=== PATIENT | female | born 1980 | race Caucasian/White ===

== ENCOUNTER 2017-02-05 10:53 | Emergency (ER) | payer MEDICAID ==
[2017-02-05] MEDS ORDERED: Sodium Chloride 0.9% 10 ML Syringe FLUSH PRN (11:47)
[2017-02-05] MEDS ORDERED: LORazepam 2 MG/ML MDV IVPUSH ONE (11:48)
--- NOTE | 2017-02-05 11:51 | EDM.PDOC ---
ED HPI GI/ABDOMINAL - General Chief Complaint: Gastrointestinal Problem Stated Complaint: VOMITING Time Seen by Provider: 02/05/17 11:43 Source: Reports: Patient, Family, Old records, RN notes reviewed History Limitations: Reports: No limitations - History of Present Illness INITIAL COMMENTS - FREE TEXT/NARRATIVE: 36-year-old female presents emergency department for a complaint of nausea and vomiting, she has no history of cyclical vomiting syndrome she has this problem every couple of months where she gets into trouble he cannot break the cycle of nausea and vomiting. This episode has been going on for about 12 hours, started menstruation today - Related Data Allergies/ADRs: Allergies Allergy/AdvReac Type Severity Reaction Status Date / Time codeine Allergy Intermediate Hives Verified 05/26/16 19:27 Home Meds: Home Meds Ibuprofen 200 mg PO Q4H PRN 05/26/16 [History] Ondansetron [Zofran ODT] 4 mg PO Q6HR PRN 02/05/17 [History] Past Medical History HEENT History: Reports: Otitis media Other Gastrointestinal History: every few months gets severe nausea and vomiting episodes. 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/BYN History: Bartholin cysts Musculoskeletal History: Reports: Neck pain, chronic Psychiatric History: Reports: ADHD Immunologic History: Reports: Immunosuppression Dermatologic History: Reports: Eczema, Other (see below) Other Dermatologic History: bartholon cysts on viry area - Infectious Disease History Infectious Disease History: Reports: Chicken pox - Past Surgical History HEENT Surgical History: Reports: Adenoidectomy, Tonsillectomy Female Surgical History: Reports: section, Tubal ligation Social & Family History - Tobacco Use Smoking Status *Q: Current Every Day Smoker Years of Tobacco use: 20 Packs/Tins Daily: 0.5 Used Tobacco, but Quit: No Second Hand Smoke Exposure: No - Caffeine Use Caffeine Use: Reports: Tea - Alcohol Use Days Per Week of Alcohol Use: 1 Number of Drinks Per Day: 1 Total Drinks Per Week: 1 - Recreational Drug Use Recreational Drug Use: No ED ROS GENERAL - Review of Systems Review Of Systems: See Below Constitutional: Denies: fever, chills HEENT: Reports: No symptoms Respiratory: Reports: no symptoms Cardiovascular: Reports: No symptoms GI/Abdominal: Reports: Abdominal pain, Nausea, Vomiting : Reports: no symptoms Musculoskeletal: Reports: no symptoms Skin: Reports: no symptoms Neurological: Reports: no symptoms ED EXAM, GI/ABD - Physical Exam Exam: See Below Text/Narrative:: General: Female, moderate discomfort secondary to nausea and vomiting, alert and oriented x3 HEENT: head is atraumatic normocephalic, eyes pupils equal round reactive to light and accommodation sclera clear no conjunctivitis appreciated. Ears tympanic membranes clear and terry landmarks and light reflex are present bilaterally canals are clear. Nose no septal deviation, nares are clear, no blood present. Mouth mucosa is dry and pink no erythema or exudate noted in soft palate, tongue is midline uvula is midline, dentition is intact. Neck: Supple no thyromegaly no tracheal deviation. Nodes: Cervical nodes subclavicular nodes nontender no palpable lymphadenopathy noted. Lungs: clear to auscultation bilaterally with symmetrical respirations, no adventitious noise appreciated. CV: Regular rate and rhythm S1 and S2 appreciated no murmurs rubs or gallops noted. Abdomen: Soft, generalized tenderness to palpation, no palpable masses or organomegaly appreciated, no distention no guarding bowel sounds are present, Neuro: Cranial nerves II through XII grossly intact Skin: Warm and dry, intact Extremities: No lower extremity edema appreciated, . Course - Vital Signs Last Recorded V/S: Last Vital Signs Temp 96.1 F 02/05/17 11:14 Pulse 47 L 02/05/17 14:58 Resp 14 02/05/17 14:58 BP 106/30 L 02/05/17 14:58 Pulse Ox 100 02/05/17 14:58 - Orders/Labs/Meds Orders: Active Orders 24 hr Category Date Time Status Peripheral IV Care [RC] . DIRECTED Care 02/05/17 11:47 Active Sodium Chloride 0.9% [Normal Saline] 1,000 ml Med 02/05/17 12:00 Active IV ASDIRECTED Sodium Chloride 0.9% [Normal Saline] 1,000 ml Med 02/05/17 13:00 Active IV ASDIRECTED Sodium Chloride 0.9% [Saline Flush] Med 02/05/17 11:47 Active 10 ml FLUSH ASDIRECTED PRN Peripheral IV Insertion Adult [OM.PC] Urgent Oth 02/05/17 11:47 Ordered Medication Orders Sodium Chloride (Normal Saline) 1,000 mls @ 999 mls/hr IV ASDIRECTED LAUREN Last Admin: 02/05/17 11:59 Dose: 999 mls/hr Sodium Chloride (Normal Saline) 1,000 mls @ 999 mls/hr IV ASDIRECTED LAUREN Last Admin: 02/05/17 13:07 Dose: 999 mls/hr Sodium Chloride (Saline Flush) 10 ml FLUSH ASDIRECTED PRN PRN Reason: Keep Vein Open Last Admin: 02/05/17 12:00 Dose: 10 ml Labs: Laboratory Tests 02/05/17 02/05/17 02/05/17 Range/Units 11:58 11:58 11:58 WBC 13.5 H (4.5-11.0) K/uL RBC 4.86 (3.30-5.50) M/uL Hgb 15.6 H (12.0-15.0) g/dL Hct 44.0 (36.0-48.0) % MCV 91 (80-98) fL MCH 32 H (27-31) pg MCHC 36 (32-36) % Plt Count 301 (150-400) K/uL Neut % (Auto) 84 H (36-66) % Lymph % (Auto) 9 L (24-44) % Meagher % (Auto) 6 (2-6) % Eos % (Auto) 0 L (2-4) % Baso % (Auto) 1 (0-1) % Sodium 141 (140-148) mmol/L Potassium 3.8 (3.6-5.2) mmol/L Chloride 104 (100-108) mmol/L Carbon Dioxide 25 (21-32) mmol/L Anion Gap 12.1 (5.0-14.0) mmol/L BUN 22 H (7-18) mg/dL Creatinine 1.0 (0.6-1.0) mg/dL Est Cr Clr Drug Dosing 56.40 mL/min Estimated GFR (MDRD) > 60 (>60) Glucose 160 H (74-106) mg/dL Lactic Acid 2.4 H (0.4-2.0) mmol/L Calcium 9.5 (8.5-10.1) mg/dL Total Bilirubin 0.6 D (0.2-1.0) mg/dL AST 19 (15-37) U/L ALT 24 (12-78) U/L Alkaline Phosphatase 40 L (46-116) U/L Total Protein 7.9 (6.4-8.2) g/dL Albumin 4.5 (3.4-5.0) g/dL Globulin 3.4 (2.3-3.5) g/dL Albumin/Globulin Ratio 1.3 (1.2-2.2) Lipase 75 (73-393) U/L Urine Color Urine Appearance Urine pH (4.5-8.0) Ur Specific [place] (1.008-1.030) Urine Protein (NEGATIVE) mg/dL Urine Glucose (UA) (NEGATIVE) mg/dL Urine Ketones (NEGATIVE) mg/dL Urine Occult Blood (NEGATIVE) Urine Nitrite (NEGATIVE) Urine Bilirubin (NEGATIVE) Urine Urobilinogen (NORMAL) mg/dL Ur Leukocyte Esterase (NEGATIVE) Urine RBC (0-5) Urine WBC (0-5) Ur Epithelial Cells Amorphous Sediment Urine Bacteria Urine Mucus Urine HCG, Qual 02/05/17 02/05/17 Range/Units 13:52 13:52 WBC (4.5-11.0) K/uL RBC (3.30-5.50) M/uL Hgb (12.0-15.0) g/dL Hct (36.0-48.0) % MCV (80-98) fL MCH (27-31) pg MCHC (32-36) % Plt Count (150-400) K/uL Neut % (Auto) (36-66) % Lymph % (Auto) (24-44) % Meagher % (Auto) (2-6) % Eos % (Auto) (2-4) % Baso % (Auto) (0-1) % Sodium (140-148) mmol/L Potassium (3.6-5.2) mmol/L Chloride (100-108) mmol/L Carbon Dioxide (21-32) mmol/L Anion Gap (5.0-14.0) mmol/L BUN (7-18) mg/dL Creatinine (0.6-1.0) mg/dL Est Cr Clr Drug Dosing mL/min Estimated GFR (MDRD) (>60) Glucose (74-106) mg/dL Lactic Acid (0.4-2.0) mmol/L Calcium (8.5-10.1) mg/dL Total Bilirubin (0.2-1.0) mg/dL AST (15-37) U/L ALT (12-78) U/L Alkaline Phosphatase (46-116) U/L Total Protein (6.4-8.2) g/dL Albumin (3.4-5.0) g/dL Globulin (2.3-3.5) g/dL Albumin/Globulin Ratio (1.2-2.2) Lipase (73-393) U/L Urine Color Red Urine Appearance Turbid Urine pH 6.5 (4.5-8.0) Ur Specific [place] 1.020 (1.008-1.030) Urine Protein 30 H (NEGATIVE) mg/dL Urine Glucose (UA) Normal (NEGATIVE) mg/dL Urine Ketones 50 H (NEGATIVE) mg/dL Urine Occult Blood Large (NEGATIVE) Urine Nitrite Negative (NEGATIVE) Urine Bilirubin Negative (NEGATIVE) Urine Urobilinogen Normal (NORMAL) mg/dL Ur Leukocyte Esterase Small (NEGATIVE) Urine RBC >100 H (0-5) Urine WBC 0-5 (0-5) Ur Epithelial Cells Few Amorphous Sediment Not seen Urine Bacteria Few Urine Mucus Rare Urine HCG, Qual Negative Meds: Medications Generic Name Dose Route Start Last Admin Trade Name Freq PRN Reason Stop Dose Admin Sodium Chloride 1,000 mls @ 999 mls/hr 02/05/17 12:00 02/05/17 11:59 Normal Saline IV 999 mls/hr ASDIRECTED LAUREN Administration Sodium Chloride 1,000 mls @ 999 mls/hr 02/05/17 13:00 02/05/17 13:07 Normal Saline IV 999 mls/hr ASDIRECTED LAUREN Administration Sodium Chloride 10 ml 02/05/17 11:47 02/05/17 12:00 Saline Flush FLUSH 10 ml ASDIRECTED PRN Administration Keep Vein Open Discontinued Medications Generic Name Dose Route Start Last Admin Trade Name Freq PRN Reason Stop Dose Admin Lorazepam 1 mg 02/05/17 11:48 02/05/17 12:00 Ativan IVPUSH 02/05/17 11:49 1 mg ONETIME ONE Administration Prochlorperazine Edisylate 5 mg 02/05/17 14:20 02/05/17 14:30 Compazine IVPUSH 02/05/17 14:21 5 mg ONETIME ONE Administration Departure - Departure Time of Disposition: 15:33 Disposition: Home, Self-Care 01 Condition: good Clinical Impression: Cyclical vomiting syndrome Qualifiers: Vomiting Intractability: non-intractable Nausea presence: with nausea Qualified Code(s): G43.A0 - Cyclical vomiting, not intractable Forms: ED Department Discharge Additional Instructions: used Zofran or Ativan as needed for nausea and vomiting symptoms, Please followup with your primary care provider in 3-5 days if not better, please call return to the emergency department with worsening of symptoms. - My Orders Last 24 Hours: My Active Orders 02/05/17 11:47 Peripheral IV Care [RC] . DIRECTED Sodium Chloride 0.9% [Saline Flush] 10 ml FLUSH ASDIRECTED PRN Peripheral IV Insertion Adult [OM.PC] Urgent 02/05/17 12:00 Sodium Chloride 0.9% [Normal Saline] 1,000 ml IV ASDIRECTED 02/05/17 13:00 Sodium Chloride 0.9% [Normal Saline] 1,000 ml IV ASDIRECTED - Assessment/Plan Last 24 Hours: My Active Orders 02/05/17 11:47 Peripheral IV Care [RC] . DIRECTED Sodium Chloride 0.9% [Saline Flush] 10 ml FLUSH ASDIRECTED PRN Peripheral IV Insertion Adult [OM.PC] Urgent 02/05/17 12:00 Sodium Chloride 0.9% [Normal Saline] 1,000 ml IV ASDIRECTED 02/05/17 13:00 Sodium Chloride 0.9% [Normal Saline] 1,000 ml IV ASDIRECTED Plan: Assessment Acuity = acute on chronic Site and laterality = cyclic vomiting syndrome Etiology = unclear etiology Manifestations = none Location of injury = home Lab values =CBC elevated at 13.5 consistent leukocytosis, lactic acid elevated at 2.4 consistent lactic acidosis, urinalysis reveals greater than 100 RBCs probably related to new onset of menstruation rather than hematuria Plan she had significant improvement combination of Ativan and 2 L of fluids plan is to discharge home with Ativan and Zofran to be used as needed followup with primary care in 3-5 days if no improvement Patient was in agreement with the plan all questions were answered, they were instructed to return to the emergency department or call for worsening symptoms. This note was dictated using [employer] voice recognition software please call with any questions.
[2017-02-05] MEDS ORDERED: Sodium Chloride 0.9% 1,000 ML IV SCH ×2 (12:00→13:00)
[2017-02-05] MEDS ORDERED: Prochlorperazine 10 MG/2 ML SDV IVPUSH ONE (14:20)
[2017-02-05 14:58] VITALS: BP 106/30
== END 2017-02-05 15:45 | disposition home or self-care (01) ==
LOC: JP.ED 10:53
DX: G43.A0 Cyclical vomiting, in migraine, not intractable (principal); F17.210 Nicotine dependence, cigarettes, uncomplicated; Z88.5 Allergy status to narcotic agent; Z79.899 Other long term (current) drug therapy; Z98.890 Other specified postprocedural states
CPT/HCPCS: 36415; 80053; 81001; 81025; 83605; 83690; 85025; 96361; 96374; 96375; 99284; J0780; J2060; J7040; J7050

== ENCOUNTER 2017-09-16 12:14 | Emergency (ER) | payer MEDICAID ==
[2017-09-16 12:29] VITALS: BP 153/78
[2017-09-16] MEDS ORDERED: Acetaminophen/HYDROcodone 325-5 MG Tab PO ONE (12:34)
[2017-09-16] MEDS ORDERED: Bupivacaine 0.5%/EPINEPHrine 1:200,000 1.8 ML Cartridge INJECT ONE ×2 (12:34→13:02)
--- NOTE | 2017-09-16 12:38 | EDM.PDOC ---
ED HPI GENERAL MEDICAL PROBLEM - General Chief Complaint: ENT Problem Stated Complaint: TOOTH PAIN INTO NECK AND ARM Time Seen by Provider: 09/16/17 12:25 Source of Information: Reports: Patient History Limitations: Reports: No Limitations - History of Present Illness INITIAL COMMENTS - FREE TEXT/NARRATIVE: Christin is a 37-year-old female who presents to the emergency department stay with left lower dental pain. Patient reports that her pain started last night. Patient reports the pain radiates to her ear, down her neck and down her left arm. Patient reports that her strength in her left arm is diminished since yesterday. Patient also endorses a history of cervical spine issues with cervical radiculopathy in the past. Patient denies any fever or chills, nausea or vomiting. Patient has not been to the dentist" A while". She has been taking Aleve with minimal improvement in her symptoms. Duration: Day(s): (2) - Related Data Allergies Allergy/AdvReac Type Severity Reaction Status Date / Time codeine Allergy Intermediate Hives Verified 05/26/16 19:27 Home Meds: Home Meds Ibuprofen 200 mg PO Q4H PRN 05/26/16 [History] Ondansetron [Zofran ODT] 4 mg PO Q6HR PRN 02/05/17 [History] LORazepam [LORazepam] 1 tab PO TID PRN 09/16/17 [History] Past Medical History HEENT History: Reports: Otitis Media Other Gastrointestinal History: every few months gets severe nausea and vomiting episodes. 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: Bartholin cysts Musculoskeletal History: Reports: Neck Pain, Chronic Psychiatric History: Reports: ADHD Immunologic History: Reports: Immunosuppression Dermatologic History: Reports: Eczema, Other (See Below) Other Dermatologic History: bartholon cysts on viry area - Infectious Disease History Infectious Disease History: Reports: Chicken Pox - Past Surgical History Female Surgical History: Reports: Section, Tubal Ligation Social & Family History - Tobacco Use Smoking Status *Q: Current Every Day Smoker Years of Tobacco use: 15 Packs/Tins Daily: 0.5 Used Tobacco, but Quit: No Second Hand Smoke Exposure: No - Caffeine Use Caffeine Use: Reports: Tea - Alcohol Use Days Per Week of Alcohol Use: 1 Number of Drinks Per Day: 1 Total Drinks Per Week: 1 - Recreational Drug Use Recreational Drug Use: No ED ROS ENT - Review of Systems Review Of Systems: ROS reveals no pertinent complaints other than HPI. ED EXAM, ENT - Physical Exam Exam: See Below Exam Limited By: No Limitations General Appearance: Alert, WD/WN, Anxious Eye Exam: Bilateral Eye: EOMI, PERRL Ears: Normal External Exam, Normal Canal, Normal TMs Head: Atraumatic Neck: Normal Inspection, Supple, Non-Tender, Tender Lateral Respiratory/Chest: No Respiratory Distress, Lungs Clear Cardiovascular: Normal Peripheral Pulses, Regular Rate, Rhythm, No Murmur Extremities: Normal Inspection, Non-Tender, Normal Capillary Refill, Other ( strength is 4/5 on LUE, 5/5 RUE, distal and proximal pulses intact, cap refill intact). No: Pallor, Redness Neurological: Alert, Oriented, Normal Reflexes Psychiatric: Anxious Skin: Warm, Dry, Intact Lymphatic: No Adenopathy Course - Vital Signs Last Recorded V/S: Last Vital Signs Temp 35.9 C 09/16/17 12: Pulse 58 L 09/16/17 12:27 Resp 15 09/16/17 12:27 BP 153/78 H 09/16/17 12:27 Pulse Ox 99 09/16/17 12:27 Christin is a 37 year old female who presents to the ED today with c/o left lower dental pain extending down left lateral neck/shoulder and into left arm. Patient reports that the arm involvement has happened in the past with her dental pain and typically lasts about a day. Patient on exam is well hydrated, she is non toxic appearing, she shows no signs of Neto Angina or trismus, no fluctuant abscess appreciated. I offered patient a dental block which she agreed to. She was injected with 0.25 Marcaine with Epinephrine with good relief, tolerated well, into left inferior alveolar region. I discussed the patient we need to start her on a ten-day course of amoxicillin for her likely dental abscess. I will send her home with Percocet for pain, she has not had frequent opioid narcotics according to the [place] prescription monitoring program. I strongly encouraged patient to continue to take Aleve for the anti-inflammatory component. I anticipate that her arm involvement will improve as the inflammation and infection improved. Reasons to return to the emergency department were discussed in detail, I encouraged patient to get a hold of her dental clinic on Monday to schedule an appointment. She is agreeable to plan of care and was discharged in stable condition with her daughter driving. - Orders/Labs/Meds Meds: Medications Discontinued Medications Generic Name Dose Route Start Last Admin Trade Name Kaveh PRN Reason Stop Dose Admin Hydrocodone Bitart/Acetaminophen 2 tab 09/16/17 12:34 09/16/17 12:40 [place] 325-5 Mg PO 09/16/17 12:35 2 tab ONETIME ONE Administration Bupivacaine HCl/Epinephrine Bitart 1.8 ml 09/16/17 12:34 09/16/17 12:40 Marcaine 0.5%/Epinephrine 1:200,000 INJECT 09/16/17 12:35 1.8 ml ONETIME ONE Administration Ondansetron HCl 4 mg 09/16/17 12:50 Zofran Odt PO 09/16/17 12:51 ONETIME ONE Departure - Departure Time of Disposition: 13:30 Disposition: Home, Self-Care 01 Condition: Good Clinical Impression: Dental abscess - Discharge Information Instructions: Dental Abscess, [id number] Referrals: PCP,None [Primary Care Provider] - Forms: ED Department Discharge Additional Instructions: Christin, Please continue taking the Aleve per bottle recommendations. You can take the Percocet for severe pain, this is a narcotic so do not drive if you take it. Take the amoxicillin as prescribed, take your first dose right away. Make sure you call the dentist on Monday to schedule an appointment. If you develops any concerns or worsening symptoms please return to the emergency department. It was nice meeting you and I hope you feel better soon.
[2017-09-16] MEDS ORDERED: Ondansetron 4 MG Tab.DIS PO ONE (12:50)
== END 2017-09-16 13:45 | disposition home or self-care (01) ==
LOC: JP.ED 12:14
DX: K04.7 Periapical abscess without sinus (principal); F17.210 Nicotine dependence, cigarettes, uncomplicated; Z88.5 Allergy status to narcotic agent
CPT/HCPCS: 64400; 99283; A9270

== ENCOUNTER 2017-12-25 14:01 | Emergency (ER) | payer MEDICAID ==
[2017-12-25] MEDS ORDERED: Sodium Chloride 0.9% 10 ML Syringe FLUSH PRN (14:55)
[2017-12-25] MEDS ORDERED: Ondansetron 4 MG/2 ML SDV IVPUSH ONE (14:56)
[2017-12-25] MEDS ORDERED: LORazepam 2 MG/ML MDV IVPUSH ONE (14:56)
[2017-12-25] MEDS ORDERED: Sodium Chloride 0.9% 1,000 ML IV SCH (15:00)
--- NOTE | 2017-12-25 15:00 | EDM.PDOC ---
ED HPI GENERAL MEDICAL PROBLEM - General Chief Complaint: Gastrointestinal Problem Stated Complaint: VOMITING Time Seen by Provider: 12/25/17 14:50 Source of Information: Reports: Patient, Family, Old Records, RN Notes Reviewed History Limitations: Reports: No Limitations - History of Present Illness INITIAL COMMENTS - FREE TEXT/NARRATIVE: 37-year-old female presents to the emergency department today complaint of nausea and vomiting, she has a history of cyclic vomiting syndrome I had the opportunity to see her for this last year she states this particular event started early this morning she has had emesis 20-30 times unable to keep any oral products down. Denies any fevers does have abdominal pain from retching - Related Data Allergies Allergy/AdvReac Type Severity Reaction Status Date / Time codeine Allergy Intermediate Hives Verified 05/26/16 19:27 Home Meds: Home Meds Ibuprofen 200 mg PO Q4H PRN 05/26/16 [History] Past Medical History HEENT History: Reports: Otitis Media Other Gastrointestinal History: every few months gets severe nausea and vomiting episodes. 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 OB/BYN History: Bartholin cysts Musculoskeletal History: Reports: Neck Pain, Chronic Psychiatric History: Reports: ADHD Immunologic History: Reports: Immunosuppression Dermatologic History: Reports: Eczema, Other (See Below) Other Dermatologic History: bartholon cysts on viry area - Infectious Disease History Infectious Disease History: Reports: Chicken Pox - Past Surgical History Female Surgical History: Reports: Section, Tubal Ligation Social & Family History - Tobacco Use Smoking Status *Q: Heavy Tobacco Smoker Years of Tobacco use: 20 Packs/Tins Daily: 0.5 Used Tobacco, but Quit: No Second Hand Smoke Exposure: No - Caffeine Use Caffeine Use: Reports: Coffee - Alcohol Use Days Per Week of Alcohol Use: 1 Number of Drinks Per Day: 1 Total Drinks Per Week: 1 - Recreational Drug Use Recreational Drug Use: No ED ROS GENERAL - Review of Systems Review Of Systems: See Below Constitutional: Denies: Fever, Chills HEENT: Reports: No Symptoms Respiratory: Reports: No Symptoms Cardiovascular: Reports: No Symptoms GI/Abdominal: Reports: Abdominal Pain, Nausea, Vomiting : Reports: No Symptoms Musculoskeletal: Reports: No Symptoms Skin: Reports: No Symptoms Neurological: Reports: No Symptoms Psychiatric: Reports: Agitation ED EXAM, GI/ABD - Physical Exam Exam: See Below Exam Limited By: No Limitations General Appearance: Alert, WD/WN, Mild Distress Eyes: Bilateral: Normal Appearance Ears: Normal External Exam Nose: Normal Inspection Throat/Mouth: Normal Inspection, Normal Lips, Normal Teeth, Normal Gums, Normal Oropharynx, Normal Voice, No Airway Compromise Head: Atraumatic, Normocephalic Neck: Normal Inspection, Supple, Non-Tender, Full Range of Motion Respiratory/Chest: No Respiratory Distress, Lungs Clear, Normal Breath Sounds, No Accessory Muscle Use Cardiovascular: Regular Rate, Rhythm, No Murmur GI/Abdominal Exam: Soft, No Distention (Generalized), Tender Extremities: Normal Inspection, No Pedal Edema (Ms. Wren she egg in them on [place] her on) Course - Vital Signs Last Recorded V/S: Last Vital Signs Temp 96.6 F 12/25/17 14:24 Pulse 88 12/25/17 17:30 Resp 16 12/25/17 17:30 BP 106/46 L 12/25/17 17:30 Pulse Ox 97 12/25/17 17:30 - Orders/Labs/Meds Orders: Active Orders 24 hr Category Date Time Status Peripheral IV Care [RC] . DIRECTED Care 12/25/17 14:56 Active Sodium Chloride 0.9% [Normal Saline] 1,000 ml Med 12/25/17 15:00 Active IV ASDIRECTED Sodium Chloride 0.9% [Saline Flush] Med 12/25/17 14:55 Active 10 ml FLUSH ASDIRECTED PRN Peripheral IV Insertion Adult [OM.PC] Urgent Oth 12/25/17 14:55 Ordered Medication Orders Sodium Chloride (Normal Saline) 1,000 mls @ 999 mls/hr IV ASDIRECTED LAUREN Last Admin: 12/25/17 15:26 Dose: 999 mls/hr Sodium Chloride (Saline Flush) 10 ml FLUSH ASDIRECTED PRN PRN Reason: Keep Vein Open Last Admin: 12/25/17 15:26 Dose: 10 ml Labs: Laboratory Tests 12/25/17 12/25/17 12/25/17 Range/Units 15:17 15:17 15:17 WBC 18.5 H (4.5-11.0) K/uL RBC 5.06 (3.30-5.50) M/uL Hgb 15.9 H (12.0-15.0) g/dL Hct 44.8 (36.0-48.0) % MCV 89 (80-98) fL MCH 31 (27-31) pg MCHC 36 (32-36) % Plt Count 296 (150-400) K/uL Neut % (Auto) 88 H (36-66) % Lymph % (Auto) 6 L (24-44) % [place] % (Auto) 6 (2-6) % Eos % (Auto) 0 L (2-4) % Baso % (Auto) 0 (0-1) % Sodium 140 (140-148) mmol/L Potassium 3.7 (3.6-5.2) mmol/L Chloride 102 (100-108) mmol/L Carbon Dioxide 21 (21-32) mmol/L Anion Gap 17.3 H (5.0-14.0) mmol/L BUN 25 H (7-18) mg/dL Creatinine 1.0 (0.6-1.0) mg/dL Est Cr Clr Drug Dosing 55.69 mL/min Estimated GFR (MDRD) > 60 (>60) Glucose 145 H (74-106) mg/dL Lactic Acid 3.5 H (0.4-2.0) mmol/L Calcium 10.5 H (8.5-10.1) mg/dL Total Bilirubin 0.6 (0.2-1.0) mg/dL AST 23 (15-37) U/L ALT 29 (12-78) U/L Alkaline Phosphatase 72 D (46-116) U/L Total Protein 8.0 (6.4-8.2) g/dL Albumin 4.6 (3.4-5.0) g/dL Globulin 3.4 (2.3-3.5) g/dL Albumin/Globulin Ratio 1.4 (1.2-2.2) Urine Color Urine Appearance Urine pH (4.5-8.0) Ur Specific Godwin (1.008-1.030) Urine Protein (NEGATIVE) mg/dL Urine Glucose (UA) (NEGATIVE) mg/dL Urine Ketones (NEGATIVE) mg/dL Urine Occult Blood (NEGATIVE) Urine Nitrite (NEGATIVE) Urine Bilirubin (NEGATIVE) Urine Urobilinogen (NORMAL) mg/dL Ur Leukocyte Esterase (NEGATIVE) Urine RBC (0-5) Urine WBC (0-5) Ur Epithelial Cells Amorphous Sediment Urine Bacteria Urine Mucus Urine Opiates Screen (NEGATIVE) Ur Oxycodone Screen (NEGATIVE) Urine Methadone Screen (NEGATIVE) Ur Propoxyphene Screen (NEGATIVE) Ur Barbiturates Screen (NEGATIVE) Ur Tricyclics Screen (NEGATIVE) Ur Phencyclidine Scrn (NEGATIVE) Ur Amphetamine Screen (NEGATIVE) U Methamphetamines Scrn (NEGATIVE) Urine MDMA Screen (NEGATIVE) U Benzodiazepines Scrn (NEGATIVE) U Cocaine Metab Screen (NEGATIVE) U Marijuana (THC) Screen (NEGATIVE) 12/25/17 12/25/17 Range/Units 17:36 17:36 WBC (4.5-11.0) K/uL RBC (3.30-5.50) M/uL Hgb (12.0-15.0) g/dL Hct (36.0-48.0) % MCV (80-98) fL MCH (27-31) pg MCHC (32-36) % Plt Count (150-400) K/uL Neut % (Auto) (36-66) % Lymph % (Auto) (24-44) % [place] % (Auto) (2-6) % Eos % (Auto) (2-4) % Baso % (Auto) (0-1) % Sodium (140-148) mmol/L Potassium (3.6-5.2) mmol/L Chloride (100-108) mmol/L Carbon Dioxide (21-32) mmol/L Anion Gap (5.0-14.0) mmol/L BUN (7-18) mg/dL Creatinine (0.6-1.0) mg/dL Est Cr Clr Drug Dosing mL/min Estimated GFR (MDRD) (>60) Glucose (74-106) mg/dL Lactic Acid (0.4-2.0) mmol/L Calcium (8.5-10.1) mg/dL Total Bilirubin (0.2-1.0) mg/dL AST (15-37) U/L ALT (12-78) U/L Alkaline Phosphatase (46-116) U/L Total Protein (6.4-8.2) g/dL Albumin (3.4-5.0) g/dL Globulin (2.3-3.5) g/dL Albumin/Globulin Ratio (1.2-2.2) Urine Color Yellow Urine Appearance Slightly cloudy Urine pH 8.0 (4.5-8.0) Ur Specific Godwin 1.015 (1.008-1.030) Urine Protein Negative (NEGATIVE) mg/dL Urine Glucose (UA) Normal (NEGATIVE) mg/dL Urine Ketones 50 H (NEGATIVE) mg/dL Urine Occult Blood Negative (NEGATIVE) Urine Nitrite Negative (NEGATIVE) Urine Bilirubin Negative (NEGATIVE) Urine Urobilinogen Normal (NORMAL) mg/dL Ur Leukocyte Esterase Negative (NEGATIVE) Urine RBC 0-5 (0-5) Urine WBC 0-5 (0-5) Ur Epithelial Cells Moderate Amorphous Sediment Not seen Urine Bacteria Few Urine Mucus Many Urine Opiates Screen Negative (NEGATIVE) Ur Oxycodone Screen Negative (NEGATIVE) Urine Methadone Screen Negative (NEGATIVE) Ur Propoxyphene Screen Negative (NEGATIVE) Ur Barbiturates Screen Negative (NEGATIVE) Ur Tricyclics Screen Negative (NEGATIVE) Ur Phencyclidine Scrn Negative (NEGATIVE) Ur Amphetamine Screen Negative (NEGATIVE) U Methamphetamines Scrn Negative (NEGATIVE) Urine MDMA Screen Positive H (NEGATIVE) U Benzodiazepines Scrn Positive H (NEGATIVE) U Cocaine Metab Screen Negative (NEGATIVE) U Marijuana (THC) Screen Positive H (NEGATIVE) Meds: Medications Generic Name Dose Route Start Last Admin Trade Name Freq PRN Reason Stop Dose Admin Sodium Chloride 1,000 mls @ 999 mls/hr 12/25/17 15:00 12/25/17 15:26 Normal Saline IV 999 mls/hr ASDIRECTED LAUREN Administration Sodium Chloride 10 ml 12/25/17 14:55 12/25/17 15:26 Saline Flush FLUSH 10 ml ASDIRECTED PRN Administration Keep Vein Open Discontinued Medications Generic Name Dose Route Start Last Admin Trade Name Freq PRN Reason Stop Dose Admin Lorazepam 1 mg 12/25/17 14:56 12/25/17 15:19 Ativan IVPUSH 12/25/17 14:57 1 mg ONETIME ONE Administration Ondansetron HCl 4 mg 12/25/17 14:56 12/25/17 15:22 Zofran IVPUSH 12/25/17 14:57 4 mg ONETIME ONE Administration Departure - Departure Time of Disposition: 18:01 Disposition: Home, Self-Care 01 Condition: Good Clinical Impression: Cyclical vomiting syndrome Qualifiers: Vomiting Intractability: non-intractable Nausea presence: with nausea Qualified Code(s): G43.A0 - Cyclical vomiting, not intractable - Discharge Information Referrals: PCP,None [Primary Care Provider] - Forms: ED Department Discharge Additional Instructions: Continue with your regular medications, Please followup with your primary care provider in 3-5 days if not better, please call return to the emergency department with worsening of symptoms. - My Orders Last 24 Hours: My Active Orders 12/25/17 14:55 Sodium Chloride 0.9% [Saline Flush] 10 ml FLUSH ASDIRECTED PRN Peripheral IV Insertion Adult [OM.PC] Urgent 12/25/17 14:56 Peripheral IV Care [RC] . DIRECTED 12/25/17 15:00 Sodium Chloride 0.9% [Normal Saline] 1,000 ml IV ASDIRECTED - Assessment/Plan Last 24 Hours: My Active Orders 12/25/17 14:55 Sodium Chloride 0.9% [Saline Flush] 10 ml FLUSH ASDIRECTED PRN Peripheral IV Insertion Adult [OM.PC] Urgent 12/25/17 14:56 Peripheral IV Care [RC] . DIRECTED 12/25/17 15:00 Sodium Chloride 0.9% [Normal Saline] 1,000 ml IV ASDIRECTED Plan: Assessment Acuity = acute on chronic Site and laterality = cyclical vomiting syndrome suspicious for cannabis hyperemesis syndrome Etiology = unclear etiology Manifestations = none Location of injury = Home Lab values = WBC elevated 18.5 consistent with leukocytosis, lactic acid elevated at 3.5 consistent lactic acidosis remainder CMP is unremarkable urinalysis unremarkable urine drug screen positive for MDMA, benzodiazepines and cannabis Plan She had significant improvement with 2 L of fluid, 1 mg Ativan 4 mg Zofran her symptoms have resolved her follow-up with her primary care in 3-5 days for reevaluation This note was dictated using [employer] voice recognition software please call with any questions on syntax or tiesha.
[2017-12-25 17:31] VITALS: BP 106/46
== END 2017-12-25 18:12 | disposition home or self-care (01) ==
LOC: JP.ED 14:01
DX: G43.A0 Cyclical vomiting, in migraine, not intractable (principal); Z88.5 Allergy status to narcotic agent; Z72.0 Tobacco use
CPT/HCPCS: 36415; 80053; 80305; 81001; 83605; 85025; 96361; 96374; 96375; 99284; J2060; J2405; J7040; J7050

== ENCOUNTER 2018-12-02 12:10 | Emergency (ER) | payer MEDICAID ==
[2018-12-02] MEDS ORDERED: LORazepam 2 MG/ML SDV IVPUSH ONE (13:00)
[2018-12-02] MEDS ORDERED: Sodium Chloride 0.9% 1,000 ML IV SCH ×2 (13:00→14:00)
[2018-12-02] MEDS ORDERED: Ondansetron 4 MG/2 ML SDV IVPUSH ONE (13:00)
--- NOTE | 2018-12-02 13:02 | EDM.PDOC ---
ED HPI GENERAL MEDICAL PROBLEM - General Chief Complaint: Gastrointestinal Problem Stated Complaint: POSSIBLE FLU Time Seen by Provider: 12/02/18 13:01 Source of Information: Reports: Patient History Limitations: Reports: No Limitations - History of Present Illness INITIAL COMMENTS - FREE TEXT/NARRATIVE: pt arrived with marjked vomiting .She states she has these episodes about every 2 monthes. Abdominal Pain Score (Numeric/FACES): 7 - Related Data Allergies Allergy/AdvReac Type Severity Reaction Status Date / Time codeine Allergy Intermediate Hives Verified 12/02/18 12:49 Home Meds: Home Meds NK [No Known Home Meds] 12/02/18 [History] Past Medical History HEENT History: Reports: Otitis Media Other Gastrointestinal History: every few months gets severe nausea and vomiting episodes. 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 Musculoskeletal History: Reports: Neck Pain, Chronic Psychiatric History: Reports: ADHD Immunologic History: Reports: Immunosuppression Dermatologic History: Reports: Eczema, Other (See Below) Other Dermatologic History: bartholon cysts on viry area - Infectious Disease History Infectious Disease History: Reports: Chicken Pox - Past Surgical History Female Surgical History: Reports: Section, Tubal Ligation Social & Family History - Tobacco Use Tobacco Use Comment: current smoker - Caffeine Use Caffeine Use: Reports: Tea - Recreational Drug Use Recreational Drug Use: No ED ROS GENERAL - Review of Systems Review Of Systems: See Below Constitutional: Reports: Chills, Weakness HEENT: Reports: No Symptoms Respiratory: Reports: No Symptoms, Other (pt was hyperventilating. ) Cardiovascular: Reports: No Symptoms Endocrine: Reports: No Symptoms GI/Abdominal: Reports: Nausea, Vomiting : Reports: No Symptoms Musculoskeletal: Reports: No Symptoms Skin: Reports: No Symptoms Neurological: Reports: Tingling, Other (pt was hyperventilating. ) Psychiatric: Reports: Anxiety ED EXAM, GI/ABD - Physical Exam Exam: See Below Text/Narrative:: Pt arrived wretching and vomiting. She was hyperventilating and very anxious. She states that she gets this about every 2 monthes. This always come when she is on her period. Exam Limited By: No Limitations General Appearance: Alert, Anxious, Moderate Distress Ears: Normal TMs Nose: Normal Inspection Throat/Mouth: Normal Inspection Head: Atraumatic Neck: Normal Inspection Respiratory/Chest: No Respiratory Distress Cardiovascular: Regular Rate, Rhythm, Tachycardia GI/Abdominal Exam: Soft, Other ( some upper abdomanal tender=mild. ) (Female) Exam: Deferred Rectal (Female) Exam: Deferred Back Exam: Normal Inspection Extremities: Normal Inspection Neurological: Alert, Oriented, Normal Cognition Course - Vital Signs Last Recorded V/S: Last Vital Signs Temp 35.8 C 12/02/18 16:04 Pulse 65 12/02/18 16:04 Resp 18 12/02/18 16:04 BP 97/78 12/02/18 16:04 Pulse Ox 99 12/02/18 16:04 - Orders/Labs/Meds Orders: Active Orders 24 hr Category Date Time Status Sodium Chloride 0.9% [Normal Saline] 1,000 ml Med 12/02/18 13:00 Active IV ASDIRECTED Sodium Chloride 0.9% [Normal Saline] 1,000 ml Med 12/02/18 14:00 Active IV ASDIRECTED Medication Orders Sodium Chloride (Normal Saline) 1,000 mls @ 999 mls/hr IV ASDIRECTED LAUREN Last Admin: 12/02/18 13:43 Dose: 999 mls/hr Sodium Chloride (Normal Saline) 1,000 mls @ 999 mls/hr IV ASDIRECTED LAUREN Last Admin: 12/02/18 14:55 Dose: 999 mls/hr Labs: Laboratory Tests 12/02/18 12/02/18 12/02/18 Range/Units 13:15 13:15 16:04 WBC 10.1 (4.5-11.0) K/uL RBC 5.07 (3.30-5.50) M/uL Hgb 15.8 H (12.0-15.0) g/dL Hct 44.8 (36.0-48.0) % MCV 88 (80-98) fL MCH 31 (27-31) pg MCHC 35 (32-36) % Plt Count 188 (150-400) K/uL Neut % (Auto) 79 H (36-66) % Lymph % (Auto) 14 L (24-44) % Shannon % (Auto) 7 H (2-6) % Eos % (Auto) 0 L (2-4) % Baso % (Auto) 1 (0-1) % Sodium 143 (140-148) mmol/L Potassium 3.4 L (3.6-5.2) mmol/L Chloride 104 (100-108) mmol/L Carbon Dioxide 20 L (21-32) mmol/L Anion Gap 22.4 H (5.0-14.0) mmol/L BUN 24 H (7-18) mg/dL Creatinine 0.8 (0.6-1.0) mg/dL Est Cr Clr Drug Dosing 64.90 mL/min Estimated GFR (MDRD) > 60 (>60) Glucose 149 H (74-106) mg/dL Calcium 9.6 (8.5-10.1) mg/dL Total Bilirubin 0.3 (0.2-1.0) mg/dL AST 34 (15-37) U/L ALT 48 (12-78) U/L Alkaline Phosphatase 82 (46-116) U/L Total Protein 8.2 (6.4-8.2) g/dL Albumin 4.2 (3.4-5.0) g/dL Globulin 4.0 H (2.3-3.5) g/dL Albumin/Globulin Ratio 1.1 L (1.2-2.2) Urine Color Yellow Urine Appearance Clear Urine pH 6.0 (4.5-8.0) Ur Specific [place] 1.015 (1.008-1.030) Urine Protein 30 H (NEGATIVE) mg/dL Urine Glucose (UA) Normal (NEGATIVE) mg/dL Urine Ketones 50 H (NEGATIVE) mg/dL Urine Occult Blood Negative (NEGATIVE) Urine Nitrite Negative (NEGATIVE) Urine Bilirubin Negative (NEGATIVE) Urine Urobilinogen Normal (NORMAL) mg/dL Ur Leukocyte Esterase Negative (NEGATIVE) Urine RBC 0-5 (0-5) Urine WBC 0-5 (0-5) Ur Epithelial Cells Rare Amorphous Sediment Not seen Urine Bacteria Not seen Urine Mucus Not seen Urine Opiates Screen (NEGATIVE) Ur Oxycodone Screen (NEGATIVE) Urine Methadone Screen (NEGATIVE) Ur Propoxyphene Screen (NEGATIVE) Ur Barbiturates Screen (NEGATIVE) Ur Tricyclics Screen (NEGATIVE) Ur Phencyclidine Scrn (NEGATIVE) Ur Amphetamine Screen (NEGATIVE) U Methamphetamines Scrn (NEGATIVE) Urine MDMA Screen (NEGATIVE) U Benzodiazepines Scrn (NEGATIVE) U Cocaine Metab Screen (NEGATIVE) U Marijuana (THC) Screen (NEGATIVE) 12/02/18 Range/Units 16:04 WBC (4.5-11.0) K/uL RBC (3.30-5.50) M/uL Hgb (12.0-15.0) g/dL Hct (36.0-48.0) % MCV (80-98) fL MCH (27-31) pg MCHC (32-36) % Plt Count (150-400) K/uL Neut % (Auto) (36-66) % Lymph % (Auto) (24-44) % Shannon % (Auto) (2-6) % Eos % (Auto) (2-4) % Baso % (Auto) (0-1) % Sodium (140-148) mmol/L Potassium (3.6-5.2) mmol/L Chloride (100-108) mmol/L Carbon Dioxide (21-32) mmol/L Anion Gap (5.0-14.0) mmol/L BUN (7-18) mg/dL Creatinine (0.6-1.0) mg/dL Est Cr Clr Drug Dosing mL/min Estimated GFR (MDRD) (>60) Glucose (74-106) mg/dL Calcium (8.5-10.1) mg/dL Total Bilirubin (0.2-1.0) mg/dL AST (15-37) U/L ALT (12-78) U/L Alkaline Phosphatase (46-116) U/L Total Protein (6.4-8.2) g/dL Albumin (3.4-5.0) g/dL Globulin (2.3-3.5) g/dL Albumin/Globulin Ratio (1.2-2.2) Urine Color Urine Appearance Urine pH (4.5-8.0) Ur Specific [place] (1.008-1.030) Urine Protein (NEGATIVE) mg/dL Urine Glucose (UA) (NEGATIVE) mg/dL Urine Ketones (NEGATIVE) mg/dL Urine Occult Blood (NEGATIVE) Urine Nitrite (NEGATIVE) Urine Bilirubin (NEGATIVE) Urine Urobilinogen (NORMAL) mg/dL Ur Leukocyte Esterase (NEGATIVE) Urine RBC (0-5) Urine WBC (0-5) Ur Epithelial Cells Amorphous Sediment Urine Bacteria Urine Mucus Urine Opiates Screen Negative (NEGATIVE) Ur Oxycodone Screen Negative (NEGATIVE) Urine Methadone Screen Negative (NEGATIVE) Ur Propoxyphene Screen Negative (NEGATIVE) Ur Barbiturates Screen Negative (NEGATIVE) Ur Tricyclics Screen Negative (NEGATIVE) Ur Phencyclidine Scrn Negative (NEGATIVE) Ur Amphetamine Screen Negative (NEGATIVE) U Methamphetamines Scrn Negative (NEGATIVE) Urine MDMA Screen Negative (NEGATIVE) U Benzodiazepines Scrn Negative (NEGATIVE) U Cocaine Metab Screen Negative (NEGATIVE) U Marijuana (THC) Screen Presumptive positive H (NEGATIVE) Meds: Medications Generic Name Dose Route Start Last Admin Trade Name Freq PRN Reason Stop Dose Admin Sodium Chloride 1,000 mls @ 999 mls/hr 12/02/18 13:00 12/02/18 13:43 Normal Saline IV 999 mls/hr ASDIRECTED LAUREN Administration Sodium Chloride 1,000 mls @ 999 mls/hr 12/02/18 14:00 12/02/18 14:55 Normal Saline IV 999 mls/hr ASDIRECTED LAUREN Administration Discontinued Medications Generic Name Dose Route Start Last Admin Trade Name Freq PRN Reason Stop Dose Admin Lorazepam 0.5 mg 12/02/18 13:00 12/02/18 13:46 Ativan IVPUSH 12/02/18 13:01 0.5 mg ONETIME ONE Administration Ondansetron HCl 4 mg 12/02/18 13:00 12/02/18 13:44 Zofran IVPUSH 12/02/18 13:01 4 mg ONETIME ONE Administration - Re-Assessments/Exams Free Text/Narrative Re-Assessment/Exam: 12/02/18 17:25 pt was given zoforan, ativan and 2 liters of fluid. She is feeling much better. Departure - Departure Time of Disposition: 17:18 Disposition: Home, Self-Care 01 Condition: Fair Clinical Impression: Cyclical vomiting, Dehydration, Anxiety - Discharge Information Referrals: Kinga Cazares MD [Primary Care Provider] - Forms: ED Department Discharge Care Plan Goals: zoforan 4 mg subling q6g prn for nausea. push fluids. - My Orders Last 24 Hours: My Active Orders 12/02/18 13:00 Sodium Chloride 0.9% [Normal Saline] 1,000 ml IV ASDIRECTED 12/02/18 14:00 Sodium Chloride 0.9% [Normal Saline] 1,000 ml IV ASDIRECTED - Assessment/Plan Last 24 Hours: My Active Orders 12/02/18 13:00 Sodium Chloride 0.9% [Normal Saline] 1,000 ml IV ASDIRECTED 12/02/18 14:00 Sodium Chloride 0.9% [Normal Saline] 1,000 ml IV ASDIRECTED
[2018-12-02 16:05] VITALS: BP 97/78
== END 2018-12-02 17:32 | disposition home or self-care (01) ==
LOC: JP.ED 12:10
DX: G43.A0 Cyclical vomiting, in migraine, not intractable (principal); E86.0 Dehydration; F41.9 Anxiety disorder, unspecified; Z98.51 Tubal ligation status; Z88.5 Allergy status to narcotic agent; F17.200 Nicotine dependence, unspecified, uncomplicated
CPT/HCPCS: 36415; 80053; 80305; 81001; 85025; 96361; 96374; 96375; 99284; J2060; J2405; J7030

== ENCOUNTER 2019-04-19 14:50 | Emergency (ER) | payer MEDICAID ==
[2019-04-19 15:11] VITALS: BP 149/94
[2019-04-19] MEDS ORDERED: Ondansetron 4 MG/2 ML SDV IVPUSH ONE (15:24)
[2019-04-19] MEDS ORDERED: LORazepam 2 MG/ML SDV IVPUSH ONE (15:25)
[2019-04-19] MEDS ORDERED: Sodium Chloride 0.9% 1,000 ML IV SCH ×2 (15:30→16:30)
--- NOTE | 2019-04-19 15:30 | EDM.PDOC ---
ED HPI GENERAL MEDICAL PROBLEM - General Chief Complaint: Gastrointestinal Problem Stated Complaint: NAUSEOUS,ANXIETY Time Seen by Provider: 04/19/19 15:30 Source of Information: Reports: Patient History Limitations: Reports: No Limitations - History of Present Illness INITIAL COMMENTS - FREE TEXT/NARRATIVE: pt has a history of cyclic vomiting. She has not used marjauna for several days. She woke up early this am and she started to vomit. She has shaking and chilling with it. She states that she uses marjauna for nausea. Onset: Today, Other ( about 6 am. ) Duration: Hour(s): Location: Reports: Abdomen, Other ( Pt is not having severe abdomanal pain. ) Associated Symptoms: Reports: Fever/Chills, Nausea/Vomiting - Related Data Allergies Allergy/AdvReac Type Severity Reaction Status Date / Time codeine Allergy Intermediate Hives Verified 12/02/18 12:49 adhesive tape Allergy Rash Verified 04/19/19 15:06 Home Meds: Home Meds NK [No Known Home Meds] 12/02/18 [History] Past Medical History HEENT History: Reports: Otitis Media Other Gastrointestinal History: every few months gets severe nausea and vomiting episodes. 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 DOOR CUTTER History: Bartholin cysts Musculoskeletal History: Reports: Neck Pain, Chronic Psychiatric History: Reports: ADHD Immunologic History: Reports: Immunosuppression Dermatologic History: Reports: Eczema, Other (See Below) Other Dermatologic History: bartholon cysts on viry area - Infectious Disease History Infectious Disease History: Reports: Chicken Pox - Past Surgical History Female Surgical History: Reports: Section, Tubal Ligation Social & Family History - Tobacco Use Smoking Status *Q: Current Every Day Smoker Years of Tobacco use: 20 Packs/Tins Daily: 0.5 - Caffeine Use Caffeine Use: Reports: Tea - Recreational Drug Use Recreational Drug Type: Reports: Marijuana/Hashish Recreational Drug Use Frequency: Daily ED ROS GENERAL - Review of Systems Review Of Systems: See Below Constitutional: Reports: No Symptoms HEENT: Reports: No Symptoms Respiratory: Reports: No Symptoms Cardiovascular: Reports: No Symptoms Endocrine: Reports: No Symptoms GI/Abdominal: Reports: Abdominal Pain, Nausea, Vomiting, Other ( crampy type pain) : Reports: No Symptoms Musculoskeletal: Reports: No Symptoms Skin: Reports: No Symptoms Neurological: Reports: No Symptoms Psychiatric: Reports: Anxiety ED EXAM, GI/ABD - Physical Exam Exam: See Below Text/Narrative:: pt arrived shakey and vomiting. She started vomiting about 6 am this morning. She has a history o cyclic vomiting. Exam Limited By: No Limitations General Appearance: Alert, Anxious, Moderate Distress Ears: Normal TMs Nose: Normal Inspection Throat/Mouth: Normal Inspection Head: Atraumatic Neck: Normal Inspection Respiratory/Chest: No Respiratory Distress Cardiovascular: Regular Rate, Rhythm GI/Abdominal Exam: Soft, Other ( diffuse tenderness but no guarding. ) (Female) Exam: Deferred Rectal (Female) Exam: Deferred Back Exam: Normal Inspection Extremities: Normal Inspection Neurological: Alert, Oriented, Normal Cognition, Other ( very shakey and anxious. ) Psychiatric: Anxious Course - Vital Signs Last Recorded V/S: Last Vital Signs Temp 36.1 C 04/19/19 15:12 Pulse 52 L 04/19/19 15:12 Resp 18 04/19/19 15:12 BP 149/94 H 04/19/19 15:12 Pulse Ox 100 04/19/19 15:12 - Orders/Labs/Meds Orders: Active Orders 24 hr Category Date Time Status UA W/MICROSCOPIC [URIN] Urgent Lab 04/19/19 15:23 Ordered Sodium Chloride 0.9% [Normal Saline] 1,000 ml Med 04/19/19 15:30 Active IV ASDIRECTED Sodium Chloride 0.9% [Normal Saline] 1,000 ml Med 04/19/19 16:30 Active IV ASDIRECTED Medication Orders Sodium Chloride (Normal Saline) 1,000 mls @ 999 mls/hr IV ASDIRECTED LAUREN Last Admin: 04/19/19 15:40 Dose: 999 mls/hr Sodium Chloride (Normal Saline) 1,000 mls @ 999 mls/hr IV ASDIRECTED LAUREN Last Admin: 04/19/19 16:49 Dose: 999 mls/hr Labs: Laboratory Tests 04/19/19 04/19/19 Range/Units 15:23 15:23 WBC 13.9 H (4.5-11.0) K/uL RBC 5.08 (3.30-5.50) M/uL Hgb 15.7 H (12.0-15.0) g/dL Hct 45.4 (36.0-48.0) % MCV 89 (80-98) fL MCH 31 (27-31) pg MCHC 35 (32-36) % Plt Count 261 (150-400) K/uL Neut % (Auto) 87 H (36-66) % Lymph % (Auto) 8 L (24-44) % [place] % (Auto) 5 (2-6) % Eos % (Auto) 0 L (2-4) % Baso % (Auto) 0 (0-1) % Sodium 140 (140-148) mmol/L Potassium 3.7 (3.6-5.2) mmol/L Chloride 101 (100-108) mmol/L Carbon Dioxide 22 (21-32) mmol/L Anion Gap 16.6 H (5.0-14.0) mmol/L BUN 24 H (7-18) mg/dL Creatinine 1.0 (0.6-1.0) mg/dL Est Cr Clr Drug Dosing 55.33 mL/min Estimated GFR (MDRD) > 60 (>60) Glucose 144 H (74-106) mg/dL Calcium 10.4 H (8.5-10.1) mg/dL Total Bilirubin 0.6 D (0.2-1.0) mg/dL AST 25 (15-37) U/L ALT 26 (12-78) U/L Alkaline Phosphatase 75 (46-116) U/L Total Protein 8.3 H (6.4-8.2) g/dL Albumin 4.4 (3.4-5.0) g/dL Globulin 3.9 H (2.3-3.5) g/dL Albumin/Globulin Ratio 1.1 L (1.2-2.2) Meds: Medications Generic Name Dose Route Start Last Admin Trade Name Freq PRN Reason Stop Dose Admin Sodium Chloride 1,000 mls @ 999 mls/hr 04/19/19 15:30 04/19/19 15:40 Normal Saline IV 999 mls/hr ASDIRECTED LAUREN Administration Sodium Chloride 1,000 mls @ 999 mls/hr 04/19/19 16:30 04/19/19 16:49 Normal Saline IV 999 mls/hr ASDIRECTED LAUREN Administration Discontinued Medications Generic Name Dose Route Start Last Admin Trade Name Freq PRN Reason Stop Dose Admin Lorazepam 0.5 mg 04/19/19 15:25 04/19/19 15:41 Ativan IVPUSH 04/19/19 15:26 0.5 mg ONETIME ONE Administration Ondansetron HCl 4 mg 04/19/19 15:24 04/19/19 15:40 Zofran IVPUSH 04/19/19 15:25 4 mg ONETIME ONE Administration - Re-Assessments/Exams Free Text/Narrative Re-Assessment/Exam: 04/19/19 16:26 pt was given ativan, zoforan and 2 liters of fluid. Departure - Departure Time of Disposition: 18:26 Disposition: Home, Self-Care 01 Condition: Fair Clinical Impression: Cyclic vomiting syndrome, Dehydration - Discharge Information Referrals: Kinga Cazares MD [Primary Care Provider] - Forms: ED Department Discharge Care Plan Goals: push fluids rtc ifproblems, she has zoforan at home. - My Orders Last 24 Hours: My Active Orders 04/19/19 15:23 UA W/MICROSCOPIC [URIN] Urgent 04/19/19 15:30 Sodium Chloride 0.9% [Normal Saline] 1,000 ml IV ASDIRECTED 04/19/19 16:30 Sodium Chloride 0.9% [Normal Saline] 1,000 ml IV ASDIRECTED - Assessment/Plan Last 24 Hours: My Active Orders 04/19/19 15:23 UA W/MICROSCOPIC [URIN] Urgent 04/19/19 15:30 Sodium Chloride 0.9% [Normal Saline] 1,000 ml IV ASDIRECTED 04/19/19 16:30 Sodium Chloride 0.9% [Normal Saline] 1,000 ml IV ASDIRECTED
== END 2019-04-19 18:48 | disposition home or self-care (01) ==
LOC: JP.ED 14:50
DX: G43.A0 Cyclical vomiting, in migraine, not intractable (principal); E86.0 Dehydration; F17.210 Nicotine dependence, cigarettes, uncomplicated; Z88.5 Allergy status to narcotic agent; Z91.048 Other nonmedicinal substance allergy status
CPT/HCPCS: 36415; 80053; 85025; 96361; 96374; 96375; 99283; J2060; J2405; J7030

== ENCOUNTER 2020-04-25 13:19 | Emergency (ER) | payer MEDICAID ==
[2020-04-25] MEDS ORDERED: Lactated Ringers 1,000 ML IV ONE ×2 (13:24→14:06)
[2020-04-25] MEDS ORDERED: Prochlorperazine 10 MG/2 ML SDV IVPUSH ONE (13:42)
[2020-04-25] MEDS ORDERED: diphenhydrAMINE 50 MG/ML SDV IVPUSH ONE (13:42)
--- NOTE | 2020-04-25 13:51 | EDM.PDOC ---
ED HPI GENERAL MEDICAL PROBLEM - General Chief Complaint: Gastrointestinal Problem Stated Complaint: vomiting Time Seen by Provider: 04/25/20 13:35 Source of Information: Reports: Patient, Old Records, RN History Limitations: Reports: No Limitations - History of Present Illness INITIAL COMMENTS - FREE TEXT/NARRATIVE: 39 yo female with a pHx of cyclical vomiting/cannabinoid hyperemesis syndrome presents with vomiting since about 0800h today. Has Zofran at home that she is using without relief. No blood in her emesis or stools. No fever. Sx's just like with her prior episodes of this. Reports blurred vision that she has had before with this condition. Is very irritated and feels she should not have to answer questions about her condition. She is repeatedly here and apparently at home drinking water and then vomiting it up again. Onset: Today Onset Date: 04/25/20 Onset Time: 08:00 Duration: Hour(s):, Constant Location: Reports: Generalized Quality: Reports: Other (pain not reported) Severity: Severe Improves with: Reports: None Worsens with: Reports: Other (apparent use of marijuana) Context: Reports: Other (See HPI) Associated Symptoms: Reports: Nausea/Vomiting, Other (vision changes) Treatments BILL DISTRIBUTOR: Reports: Other (see below) (Zofran ODT SL) - Related Data Allergies Allergy/AdvReac Type Severity Reaction Status Date / Time codeine Allergy Intermediate Hives Verified 12/02/18 12:49 adhesive tape Allergy Rash Verified 04/19/19 15:06 Home Meds: Home Meds Prochlorperazine [Compazine] 25 mg RC QID PRN #7 supp.rect 04/25/20 [Rx] Past Medical History HEENT History: Reports: Otitis Media Other Gastrointestinal History: every few months gets severe nausea and vomiting episodes. 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 cysts Musculoskeletal History: Reports: Neck Pain, Chronic Psychiatric History: Reports: ADHD, Anxiety Immunologic History: Reports: Immunosuppression Dermatologic History: Reports: Eczema, Other (See Below) Other Dermatologic History: bartholon cysts on viry area - Infectious Disease History Infectious Disease History: Reports: Chicken Pox - Past Surgical History Female Surgical History: Reports: Section, Tubal Ligation Social & Family History - Tobacco Use Smoking Status *Q: Heavy Tobacco Smoker Years of Tobacco use: 20 Packs/Tins Daily: 0.8 - Caffeine Use Caffeine Use: Reports: Coffee, Energy Drinks, Soda ED ROS GENERAL - Review of Systems Review Of Systems: See Below Constitutional: Reports: Malaise HEENT: Reports: Vision Change (blurring) Respiratory: Reports: No Symptoms Cardiovascular: Reports: No Symptoms GI/Abdominal: Reports: Nausea, Vomiting. Denies: Abdominal Pain, Black Stool, Bloody Stool, Constipation, Diarrhea, Distension, Flatus, Hematemesis, Hematochezia, Melena : Reports: No Symptoms Musculoskeletal: Reports: No Symptoms Skin: Reports: No Symptoms ED EXAM, GI/ABD - Physical Exam Exam: See Below Exam Limited By: No Limitations General Appearance: Alert, WD/WN, No Apparent Distress Eyes: Bilateral: Normal Appearance Ears: Normal External Exam, Normal Canal, Hearing Grossly Normal, Normal TMs Nose: Normal Inspection, No Blood Throat/Mouth: Normal Inspection, Normal Lips, Normal Oropharynx, Normal Voice, No Airway Compromise Head: Atraumatic, Normocephalic Neck: Normal Inspection Respiratory/Chest: No Respiratory Distress, Lungs Clear, Normal Breath Sounds, No Accessory Muscle Use Cardiovascular: Regular Rate, Rhythm, No Edema Extremities: Normal Inspection Neurological: Alert, Oriented, CN II-XII Intact, No Motor/Sensory Deficits Psychiatric: Other (antagonistic, does not want to be bothered.) Skin Exam: Warm, Dry, Intact, Normal Color, No Rash Course - Vital Signs Last Recorded V/S: Last Vital Signs Temp 34.9 C L 04/25/20 13:31 Pulse 49 L 04/25/20 13:31 Resp 24 H 04/25/20 13:31 BP 131/86 04/25/20 13:31 Pulse Ox 100 04/25/20 13:31 - Orders/Labs/Meds Orders: Active Orders 24 hr Category Date Time Status DRUG SCREEN, URINE [URCHEM] Stat Lab 04/25/20 13:22 Ordered UA W/MICROSCOPIC [URIN] Stat Lab 04/25/20 13:21 Ordered Labs: Laboratory Tests 04/25/20 Range/Units 13:30 Sodium 143 (140-148) mmol/L Potassium 4.1 (3.6-5.2) mmol/L Chloride 104 (100-108) mmol/L Carbon Dioxide 21 (21-32) mmol/L Anion Gap 18.3 H (5.0-14.0) mmol/L BUN 23 H (7-18) mg/dL Creatinine 0.9 (0.6-1.0) mg/dL Est Cr Clr Drug Dosing TNP Estimated GFR (MDRD) > 60 (>60) Glucose 157 H (74-106) mg/dL Calcium 10.0 (8.5-10.1) mg/dL Meds: Medications Discontinued Medications Generic Name Dose Route Start Last Admin Trade Name Freq PRN Reason Stop Dose Admin Diphenhydramine HCl 50 mg 04/25/20 13:42 04/25/20 13:48 Benadryl IVPUSH 04/25/20 13:43 50 mg ONETIME ONE Administration Lactated Ringer's 1,000 mls @ 1,000 mls/hr 04/25/20 13:24 04/25/20 13:30 Ringers, Lactated IV 04/25/20 14:23 1,000 mls/hr BOLUS ONE Administration Lactated Ringer's 1,000 mls @ 1,000 mls/hr 04/25/20 14:06 04/25/20 14:32 Ringers, Lactated IV 04/25/20 15:05 1,000 mls/hr BOLUS ONE Administration Prochlorperazine Edisylate 10 mg 04/25/20 13:42 04/25/20 13:48 Compazine IVPUSH 04/25/20 13:43 10 mg ONETIME ONE Administration - Re-Assessments/Exams Free Text/Narrative Re-Assessment/Exam: 04/25/20 15:19 Feeling better after compazine IV and IV fluids. Departure - Departure Time of Disposition: 15:35 Disposition: Home, Self-Care 01 Condition: Fair Clinical Impression: Nausea and vomiting Qualifiers: Vomiting type: unspecified Vomiting Intractability: non-intractable Qualified Code(s): R11.2 - Nausea with vomiting, unspecified - Discharge Information *PRESCRIPTION DRUG MONITORING PROGRAM REVIEWED*: No *COPY OF PRESCRIPTION DRUG MONITORING REPORT IN PATIENT OCTAVIO: No Prescriptions: Prochlorperazine [Compazine] 25 mg RC QID PRN #7 supp.rect PRN Reason: Nausea Instructions: Nausea and Vomiting, Adult, [id number] Referrals: PCP,None [Primary Care Provider] - Forms: ED Department Discharge Additional Instructions: If Zofran ODT does not control your nausea, then try the Compazine suppositories. F/U with your provider early in this next week for recheck. No driving today. Sepsis Event Note - Evaluation Sepsis Screening Result: No Definite Risk - Focused Exam Vital Signs: Vital Signs Temp Pulse Resp BP Pulse Ox 04/25/20 13:31 34.9 C L 49 L 24 H 131/86 100 04/25/20 13:26 34.9 C L 49 L 24 H 131/86 100 Date Exam was Performed: 04/25/20 Time Exam was Performed: 15:19 - My Orders Last 24 Hours: My Active Orders 04/25/20 13:21 UA W/MICROSCOPIC [URIN] Stat 04/25/20 13:22 DRUG SCREEN, URINE [URCHEM] Stat - Assessment/Plan Last 24 Hours: My Active Orders 04/25/20 13:21 UA W/MICROSCOPIC [URIN] Stat 04/25/20 13:22 DRUG SCREEN, URINE [URCHEM] Stat
[2020-04-25 13:53] VITALS: BP 131/86; PULSE 49
== END 2020-04-25 15:50 | disposition home or self-care (01) ==
LOC: JP.ED 13:19
DX: R11.2 Nausea with vomiting, unspecified (principal); Z88.5 Allergy status to narcotic agent; Z91.048 Other nonmedicinal substance allergy status; F17.210 Nicotine dependence, cigarettes, uncomplicated
CPT/HCPCS: 36415; 80048; 80305; 81001; 96361; 96374; 96375; 99284; J0780; J1200; J7120

== ENCOUNTER 2021-04-15 11:33 | Emergency (ER) | payer MEDICAID ==
[2021-04-15] MEDS ORDERED: Ondansetron 4 MG/2 ML SDV IVPUSH ONE (12:32)
[2021-04-15] MEDS ORDERED: diphenhydrAMINE 50 MG/ML SDV IVPUSH ONE (12:33)
[2021-04-15] MEDS ORDERED: LORazepam 2 MG/ML SDV IVPUSH ONE (12:33)
[2021-04-15] MEDS ORDERED: Sodium Chloride 0.9% 1,000 ML IV SCH (12:45)
--- NOTE | 2021-04-15 12:51 | EDM.PDOC ---
<Todd Muñiz G - Last Filed: 04/15/21 13:45> ED HPI GENERAL MEDICAL PROBLEM - General Chief Complaint: Gastrointestinal Problem Stated Complaint: VOMITING Time Seen by Provider: 04/15/21 12:25 - Related Data Allergies Allergy/AdvReac Type Severity Reaction Status Date / Time codeine Allergy Intermediate Hives Verified 04/15/21 12:19 adhesive tape Allergy Rash Verified 04/15/21 12:19 Home Meds: Home Meds Prochlorperazine [Compazine] 25 mg RC QID PRN #7 supp.rect 04/25/20 [Rx] Departure - Departure Time of Disposition: 14:00 Disposition: Home, Self-Care 01 Condition: Fair Clinical Impression: Cyclical vomiting - Discharge Information *PRESCRIPTION DRUG MONITORING PROGRAM REVIEWED*: No *COPY OF PRESCRIPTION DRUG MONITORING REPORT IN PATIENT OCTAVIO: No Instructions: Viral Gastroenteritis, Adult, [id number] Referrals: PCP,None [Primary Care Provider] - Forms: ED Department Discharge Additional Instructions: Follow up jesus with your primary care provider. No driving today. <Don Rutherford - Last Filed: 04/15/21 15:34> ED HPI GENERAL MEDICAL PROBLEM - General Source of Information: Reports: Patient History Limitations: Reports: No Limitations - History of Present Illness INITIAL COMMENTS - FREE TEXT/NARRATIVE: 40-year-old female who has cyclic vomiting episodes for the past several years, possibly marijuana induced but does not resolve with treatment with medications and fluids in the ER. She has needed an ER visit once a year for the past 3 years, coincidently or not each 1 of these visits has been in March. Her stomach is sore from vomiting but no abdominal pain otherwise, no fevers or chills, no diarrhea. This started at 4 AM. She admits that she is under a lot of stress right now as well. Onset: Unknown/Unsure (Woke with symptoms at 4 AM) Duration: Hour(s): (Symptoms for the last 8 hours) Associated Symptoms: Reports: Nausea/Vomiting, Weakness, Other (Stomach cramps from vomiting). Denies: Fever/Chills, Headaches Past Medical History HEENT History: Reports: Otitis Media Other Gastrointestinal History: every few months gets severe nausea and vomiting episodes. 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 Musculoskeletal History: Reports: Neck Pain, Chronic Psychiatric History: Reports: ADHD, Anxiety Immunologic History: Reports: Immunosuppression Dermatologic History: Reports: Eczema, Other (See Below) Other Dermatologic History: bartholon cysts on viry area - Infectious Disease History Infectious Disease History: Reports: Chicken Pox - Past Surgical History HEENT Surgical History: Reports: Adenoidectomy, Tonsillectomy Female Surgical History: Reports: Section, Tubal Ligation Social & Family History - Tobacco Use Tobacco Use Status *Q: Light Tobacco User Years of Tobacco use: 20 Packs/Tins Daily: 0.5 - Caffeine Use Caffeine Use: Reports: Coffee, Energy Drinks, Soda, Tea - Recreational Drug Use Recreational Drug Use: Yes Recreational Drug Type: Reports: Marijuana/Hashish Recreational Drug Use Frequency: Daily ED ROS GENERAL - Review of Systems Review Of Systems: See Below Constitutional: Reports: Malaise. Denies: Fever, Chills HEENT: Reports: No Symptoms Respiratory: Denies: Shortness of Breath Cardiovascular: Denies: Chest Pain GI/Abdominal: Reports: Abdominal Pain, Nausea, Vomiting. Denies: Constipation, Diarrhea Skin: Reports: No Symptoms Neurological: Reports: Dizziness, Weakness. Denies: Headache Psychiatric: Reports: No Symptoms ED EXAM, GI/ABD - Physical Exam Exam: See Below Exam Limited By: No Limitations General Appearance: Alert, Moderate Distress (Looks very tired and miserable, actively retching) Eyes: Bilateral: Normal Appearance (No jaundice) Head: Atraumatic Respiratory/Chest: No Respiratory Distress, Lungs Clear Cardiovascular: Regular Rate, Rhythm, Bradycardia GI/Abdominal Exam: Other (Bowel sounds are hypoactive, no distention) Extremities: Normal Inspection. No: Pedal Edema Neurological: Alert, Oriented Course - Vital Signs Last Recorded V/S: Last Vital Signs Temp 97.9 F 04/15/21 12:18 Pulse 47 L 04/15/21 14:20 Resp 17 04/15/21 14:20 BP 155/76 H 04/15/21 14:20 Pulse Ox 100 04/15/21 14:20 - Orders/Labs/Meds Meds: Medications Discontinued Medications Generic Name Dose Route Start Last Admin Trade Name Freq PRN Reason Stop Dose Admin Diphenhydramine HCl 25 mg 04/15/21 12:33 04/15/21 12:45 Diphenhydramine 50 Mg/Ml Sdv IVPUSH 04/15/21 12:34 25 mg ONETIME ONE Administration Sodium Chloride 1,000 mls @ 999 mls/hr 04/15/21 12:45 04/15/21 12:44 Normal Saline IV 999 mls/hr ASDIRECTED LAUREN Administration Lorazepam 1 mg 04/15/21 12:33 04/15/21 12:47 Lorazepam 2 Mg/Ml Sdv IVPUSH 04/15/21 12:34 1 mg ONETIME ONE Administration Ondansetron HCl 4 mg 04/15/21 12:32 04/15/21 12:44 Ondansetron 4 Mg/2 Ml Sdv IVPUSH 04/15/21 12:33 4 mg ONETIME ONE Administration Prochlorperazine Edisylate 10 mg 04/15/21 13:44 04/15/21 14:11 Prochlorperazine 10 Mg/2 Ml Sdv IVPUSH 04/15/21 13:45 10 mg ONETIME ONE Administration - Re-Assessments/Exams Free Text/Narrative Re-Assessment/Exam: 04/15/21 12:51 Reviewed her records and this patient does have a pretty straightforward recurring cyclic vomiting history. An IV was started, she was given 1 L normal saline, 4 mg of IV Zofran, 1 mg of Ativan and 25 mg of IV Benadryl. 30 minutes after the medications, patient was sleeping quietly. Care turned over to Dr. Muñiz. Sepsis Event Note (ED) - Evaluation Sepsis Screening Result: No Definite Risk - Focused Exam Vital Signs: Vital Signs Temp Pulse Resp BP Pulse Ox 04/15/21 14:20 47 L 17 155/76 H 100 04/15/21 12:18 97.9 F 50 L 22 H 176/80 H 100 04/15/21 12:06 97.9 F 50 L 22 H 176/80 H 100
[2021-04-15] MEDS ORDERED: Prochlorperazine 10 MG/2 ML SDV IVPUSH ONE (13:44)
[2021-04-15 14:55] VITALS: BP 155/76; PULSE 47
== END 2021-04-15 14:56 | disposition home or self-care (01) ==
LOC: JP.ED 11:33
DX: R11.15 Cyclical vomiting syndrome unrelated to migraine (principal); Z88.5 Allergy status to narcotic agent; Z91.018 Allergy to other foods; Z72.0 Tobacco use
CPT/HCPCS: 96374; 96375; 99283; 99284; J0780; J1200; J2060; J2405; J7030

== ENCOUNTER 2021-04-17 08:24 | Emergency (ER) | payer MEDICAID ==
[2021-04-17] MEDS ORDERED: diphenhydrAMINE 50 MG/ML SDV IVPUSH ONE (09:03)
[2021-04-17] MEDS ORDERED: Prochlorperazine 10 MG/2 ML SDV IVPUSH ONE (09:03)
[2021-04-17] MEDS ORDERED: Lactated Ringers 1,000 ML IV ONE ×2 (09:03→12:57)
--- NOTE | 2021-04-17 09:04 | EDM.PDOC ---
ED HPI GENERAL MEDICAL PROBLEM - General Chief Complaint: Gastrointestinal Problem Stated Complaint: VOMITTING Time Seen by Provider: 04/17/21 09:00 Source of Information: Reports: Patient, Old Records, RN History Limitations: Reports: No Limitations - History of Present Illness INITIAL COMMENTS - FREE TEXT/NARRATIVE: 40 yo female with a pHx of cyclical vomiting presents with a recurrence of her sx's that began this morning. No fever, diarrhea or hematemesis. Was here 2 days ago for the same. Was good all day yesterday and through the night. Does not have a family doctor. Onset: Today, Sudden Onset Date: 04/17/21 Duration: Minutes:, Constant Location: Reports: Abdomen Quality: Reports: Ache Severity: Moderate Improves with: Reports: None Worsens with: Reports: None Context: Reports: Other (cyclical vomiting hx) Associated Symptoms: Reports: Nausea/Vomiting. Denies: Fever/Chills Treatments ALL SOURCE ANALYST: Reports: Other (see below) (none) Abdomen Pain Score (Numeric/FACES): 6 - Related Data Allergies Allergy/AdvReac Type Severity Reaction Status Date / Time codeine Allergy Intermediate Hives Verified 04/17/21 08:32 adhesive tape Allergy Rash Verified 04/17/21 08:32 Home Meds: Home Meds Prochlorperazine [Compazine] 25 mg RC QID PRN #7 supp.rect 04/25/20 [Rx] Prochlorperazine [Compazine] 25 mg RC Q6H PRN #6 supp.rect 04/17/21 [Rx] Past Medical History HEENT History: Reports: Otitis Media Gastrointestinal History: Reports: Other (See Below) Other Gastrointestinal History: every few months gets severe nausea and vomiting episodes. 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 SALT MAKER History: Bartholin cysts Musculoskeletal History: Reports: Neck Pain, Chronic Psychiatric History: Reports: ADHD, Anxiety Immunologic History: Reports: Immunosuppression Dermatologic History: Reports: Eczema, Other (See Below) Other Dermatologic History: bartholon cysts on viry area - Infectious Disease History Infectious Disease History: Reports: Chicken Pox - Past Surgical History HEENT Surgical History: Reports: Adenoidectomy, Tonsillectomy Female Surgical History: Reports: Section, Tubal Ligation Social & Family History - Tobacco Use Tobacco Use Status *Q: Current Every Day Tobacco User Years of Tobacco use: 21 Packs/Tins Daily: 0.5 - Caffeine Use Caffeine Use: Reports: Coffee, Soda - Recreational Drug Use Recreational Drug Use: Yes Recreational Drug Type: Reports: Marijuana/Hashish Recreational Drug Last Use: t-1 ED ROS GENERAL - Review of Systems Review Of Systems: See Below Constitutional: Reports: Decreased Appetite. Denies: Fever, Chills HEENT: Reports: No Symptoms Respiratory: Reports: No Symptoms Cardiovascular: Reports: No Symptoms GI/Abdominal: Reports: Abdominal Pain, Nausea, Vomiting. Denies: Black Stool, Bloody Stool, Constipation, Diarrhea, Distension, Hematemesis, Hematochezia, Melena : Reports: No Symptoms Musculoskeletal: Reports: No Symptoms Skin: Reports: No Symptoms Neurological: Reports: No Symptoms Psychiatric: Reports: No Symptoms ED EXAM, GI/ABD - Physical Exam Exam: See Below Exam Limited By: No Limitations General Appearance: Alert, WD/WN, Mild Distress Eyes: Bilateral: Normal Appearance Ears: Normal External Exam, Normal Canal, Hearing Grossly Normal, Normal TMs Nose: Normal Inspection, No Blood Throat/Mouth: Normal Inspection, Normal Lips, Normal Voice, No Airway Compromise Head: Atraumatic, Normocephalic Neck: Normal Inspection Respiratory/Chest: No Respiratory Distress, Lungs Clear, Normal Breath Sounds, No Accessory Muscle Use Cardiovascular: Regular Rate, Rhythm, No Edema. No: Tachycardia Extremities: Normal Inspection Neurological: Alert, Oriented, CN II-XII Intact, Normal Cognition, No Motor/Sensory Deficits Course - Vital Signs Last Recorded V/S: Last Vital Signs Temp 36.1 C 04/17/21 08:38 Pulse 49 L 04/17/21 14:10 Resp 14 04/17/21 14:10 BP 160/86 H 04/17/21 14:10 Pulse Ox 99 04/17/21 14:10 - Orders/Labs/Meds Labs: Laboratory Tests 04/17/21 04/17/21 04/17/21 Range/Units 10:56 10:56 10:56 WBC 10.0 (4.5-11.0) K/uL RBC 4.79 (3.30-5.50) M/uL Hgb 14.9 (12.0-15.0) g/dL Hct 43.7 (36.0-48.0) % MCV 91 (80-98) fL MCH 31 (27-31) pg MCHC 34 (32-36) % Plt Count 232 (150-400) K/uL Sodium 142 (140-148) mmol/L Potassium 3.8 (3.6-5.2) mmol/L Chloride 104 (100-108) mmol/L Carbon Dioxide 24 (21-32) mmol/L Anion Gap 14.1 H (5.0-14.0) mmol/L BUN 20 H (7-18) mg/dL Creatinine 0.8 (0.6-1.0) mg/dL Est Cr Clr Drug Dosing 67.61 mL/min Estimated GFR (MDRD) > 60 (>60) Glucose 118 H (74-106) mg/dL Calcium 9.3 (8.5-10.1) mg/dL Lipase 109 (73-393) U/L Urine Opiates Screen (NEGATIVE) Ur Oxycodone Screen (NEGATIVE) Urine Methadone Screen (NEGATIVE) Ur Propoxyphene Screen (NEGATIVE) Ur Barbiturates Screen (NEGATIVE) Ur Tricyclics Screen (NEGATIVE) Ur Phencyclidine Scrn (NEGATIVE) Ur Amphetamine Screen (NEGATIVE) U Methamphetamines Scrn (NEGATIVE) Urine MDMA Screen (NEGATIVE) U Benzodiazepines Scrn (NEGATIVE) U Cocaine Metab Screen (NEGATIVE) U Marijuana (THC) Screen (NEGATIVE) 04/17/21 Range/Units 14:21 WBC (4.5-11.0) K/uL RBC (3.30-5.50) M/uL Hgb (12.0-15.0) g/dL Hct (36.0-48.0) % MCV (80-98) fL MCH (27-31) pg MCHC (32-36) % Plt Count (150-400) K/uL Sodium (140-148) mmol/L Potassium (3.6-5.2) mmol/L Chloride (100-108) mmol/L Carbon Dioxide (21-32) mmol/L Anion Gap (5.0-14.0) mmol/L BUN (7-18) mg/dL Creatinine (0.6-1.0) mg/dL Est Cr Clr Drug Dosing mL/min Estimated GFR (MDRD) (>60) Glucose (74-106) mg/dL Calcium (8.5-10.1) mg/dL Lipase (73-393) U/L Urine Opiates Screen Negative (NEGATIVE) Ur Oxycodone Screen Negative (NEGATIVE) Urine Methadone Screen Negative (NEGATIVE) Ur Propoxyphene Screen Negative (NEGATIVE) Ur Barbiturates Screen Negative (NEGATIVE) Ur Tricyclics Screen Negative (NEGATIVE) Ur Phencyclidine Scrn Negative (NEGATIVE) Ur Amphetamine Screen Negative (NEGATIVE) U Methamphetamines Scrn Negative (NEGATIVE) Urine MDMA Screen Negative (NEGATIVE) U Benzodiazepines Scrn Presumptive positive H (NEGATIVE) U Cocaine Metab Screen Negative (NEGATIVE) U Marijuana (THC) Screen Presumptive positive H (NEGATIVE) Meds: Medications Discontinued Medications Generic Name Dose Route Start Last Admin Trade Name Freq PRN Reason Stop Dose Admin Diphenhydramine HCl 50 mg 04/17/21 09:03 04/17/21 09:44 Diphenhydramine 50 Mg/Ml Sdv IVPUSH 04/17/21 09:04 50 mg ONETIME ONE Administration Lactated Ringer's 1,000 mls @ 1,000 mls/hr 04/17/21 09:03 04/17/21 09:47 Ringers, Lactated IV 04/17/21 10:02 1,000 mls/hr BOLUS ONE Administration Lactated Ringer's 1,000 mls @ 1,000 mls/hr 04/17/21 12:57 04/17/21 12:59 Ringers, Lactated IV 04/17/21 13:56 1,000 mls/hr BOLUS ONE Administration Ketorolac Tromethamine 30 mg 04/17/21 10:10 04/17/21 10:16 Ketorolac 30 Mg/Ml Sdv IVPUSH 04/17/21 10:11 30 mg ONETIME ONE Administration Lorazepam 1 mg 04/17/21 10:45 04/17/21 11:10 Lorazepam 2 Mg/Ml Sdv IVPUSH 04/17/21 10:46 1 mg ONETIME ONE Administration Ondansetron HCl 4 mg 04/17/21 10:45 04/17/21 11:15 Ondansetron 4 Mg/2 Ml Sdv IVPUSH 04/17/21 10:46 4 mg ONETIME ONE Administration Prochlorperazine Edisylate 10 mg 04/17/21 09:03 04/17/21 09:43 Prochlorperazine 10 Mg/2 Ml Sdv IVPUSH 04/17/21 09:04 10 mg ONETIME ONE Administration - Re-Assessments/Exams Free Text/Narrative Re-Assessment/Exam: 04/17/21 14:35 Feeling better, ready for discharge. Departure - Departure Time of Disposition: 14:36 Disposition: Home, Self-Care 01 Condition: Fair Clinical Impression: Cannabinoid hyperemesis syndrome - Discharge Information *PRESCRIPTION DRUG MONITORING PROGRAM REVIEWED*: Not Applicable *COPY OF PRESCRIPTION DRUG MONITORING REPORT IN PATIENT OCTAVIO: Not Applicable Referrals: PCP,None [Primary Care Provider] - Forms: ED Department Discharge Additional Instructions: Get established with a primary care provider. Use Compazine suppositories as needed for nausea control. Advance diet slowly as needed. 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 Return as needed. Sepsis Event Note (ED) - Evaluation Sepsis Screening Result: No Definite Risk - Focused Exam Vital Signs: Vital Signs Temp Pulse Resp BP Pulse Ox 04/17/21 14:10 49 L 14 160/86 H 99 04/17/21 08:38 36.1 C 57 L 20 175/95 H 100
[2021-04-17] MEDS ORDERED: Ketorolac 30 MG/ML SDV IVPUSH ONE (10:10)
[2021-04-17] MEDS ORDERED: Ondansetron 4 MG/2 ML SDV IVPUSH ONE (10:45)
[2021-04-17] MEDS ORDERED: LORazepam 2 MG/ML SDV IVPUSH ONE (10:45)
[2021-04-17 14:11] VITALS: BP 160/86; PULSE 49
== END 2021-04-17 15:00 | disposition home or self-care (01) ==
LOC: JP.ED 08:24
DX: R11.2 Nausea with vomiting, unspecified (principal); F12.90 Cannabis use, unspecified, uncomplicated; Z88.5 Allergy status to narcotic agent; Z91.048 Other nonmedicinal substance allergy status; Z72.0 Tobacco use
CPT/HCPCS: 36415; 80048; 80305; 83690; 85027; 96374; 96375; 99284; J0780; J1200; J1885; J2060; J2405; J7120

== ENCOUNTER 2021-05-16 10:39 | Emergency (ER) | payer MEDICAID ==
[2021-05-16] MEDS ORDERED: Sodium Chloride 0.9% 1,000 ML IV SCH (11:30)
[2021-05-16] MEDS: Sodium Chloride 0.9% 10 ML Syringe FLUSH PRN ×2 (11:53→12:24)
--- NOTE | 2021-05-16 12:00 | EDM.PDOC ---
ED HPI GENERAL MEDICAL PROBLEM - General Chief Complaint: Gastrointestinal Problem Stated Complaint: CHRONIC VOMITING SYNDROME Time Seen by Provider: 05/16/21 11:30 Source of Information: Reports: Patient, RN - History of Present Illness INITIAL COMMENTS - FREE TEXT/NARRATIVE: Christin is a 40 year old female present to ER with acute on chronic recurrent cyclic vomiting. Christin is well known to ER staff for presenting complaint. Christin and denies any different symptoms compared to previous bouts of similar cyclic vomiting. - Related Data Allergies Allergy/AdvReac Type Severity Reaction Status Date / Time codeine Allergy Intermediate Hives Verified 04/17/21 08:32 adhesive tape Allergy Rash Verified 04/17/21 08:32 Home Meds: Home Meds Prochlorperazine [Compazine] 25 mg RC QID PRN #7 supp.rect 04/25/20 [Rx] Prochlorperazine [Compazine] 25 mg RC Q6H PRN #6 supp.rect 04/17/21 [Rx] LORazepam [Ativan] 1 mg PO Q6H 2 Days #5 tab 05/16/21 [Rx] haloperidoL [Haldol] 2 mg PO Q12HR 2 Days #4 tab 05/16/21 [Rx] Past Medical History HEENT History: Reports: Otitis Media Gastrointestinal History: Reports: Other (See Below) Other Gastrointestinal History: every few months gets severe nausea and vomiting episodes. 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 Musculoskeletal History: Reports: Neck Pain, Chronic Psychiatric History: Reports: ADHD, Anxiety Immunologic History: Reports: Immunosuppression Dermatologic History: Reports: Eczema, Other (See Below) Other Dermatologic History: bartholon cysts on viry area - Infectious Disease History Infectious Disease History: Reports: Chicken Pox - Past Surgical History HEENT Surgical History: Reports: Adenoidectomy, Tonsillectomy Female Surgical History: Reports: Section, Tubal Ligation Social & Family History - Tobacco Use Tobacco Use Status *Q: Current Every Day Tobacco User Years of Tobacco use: 20 Packs/Tins Daily: 0.5 - Caffeine Use Caffeine Use: Reports: Coffee, Soda - Recreational Drug Use Recreational Drug Use: Yes Recreational Drug Type: Reports: Other (see below) Other Recreational Drug Type: medical marijuana Recreational Drug Use Frequency: Daily ED ROS GENERAL - Review of Systems Review Of Systems: Unable To Obtain (no additional symptom concerns offered) Reason Not Obtained: no additional symptom concerns offered ED EXAM, GI/ABD - Physical Exam Exam: See Below Exam Limited By: Other (forceful cyclic vomiting and nausea limiting exam) General Appearance: Alert, WD/WN, Severe Distress (forceful cyclic vomiting and nausea limiting exam) Eyes: Bilateral: Normal Appearance Ears: Hearing Grossly Normal Throat/Mouth: Normal Inspection, Normal Voice, No Airway Compromise Neck: Normal Inspection Respiratory/Chest: No Respiratory Distress, Lungs Clear, Normal Breath Sounds Cardiovascular: Normal Peripheral Pulses, Regular Rate, Rhythm GI/Abdominal Exam: Non-Tender Neurological: Inattentive Psychiatric: Tearful Skin Exam: Diaphoretic Course - Vital Signs Last Recorded V/S: Last Vital Signs Temp 35.9 C L 05/16/21 11:37 Pulse 56 L 05/16/21 11:37 Resp 24 H 05/16/21 11:37 BP 157/111 H 05/16/21 11:37 Pulse Ox 97 05/16/21 11:37 - Orders/Labs/Meds Orders: Active Orders 24 hr Category Date Time Status Peripheral IV Care [RC] . DIRECTED Care 05/16/21 11:30 Active Sodium Chloride 0.9% [Normal Saline] 1,000 ml Med 05/16/21 11:30 Active IV ASDIRECTED Sodium Chloride 0.9% [Saline Flush] Med 05/16/21 11:30 Active 10 ml FLUSH ASDIRECTED PRN Peripheral IV Insertion Adult [OM.PC] Urgent Oth 05/16/21 11:29 Ordered Medication Orders Sodium Chloride (Normal Saline) 1,000 mls @ 500 mls/hr IV ASDIRECTED LAUREN Last Admin: 05/16/21 11:50 Dose: 500 mls/hr Documented by: CAMILLE Sodium Chloride (Sodium Chloride 0.9% 10 Ml Syringe) 10 ml FLUSH ASDIRECTED PRN PRN Reason: Keep Vein Open Last Admin: 05/16/21 12:24 Dose: 10 ml Documented by: Admin: 05/16/21 11:53 Dose: 10 ml Documented by: CAMILLE Meds: Medications Generic Name Dose Route Start Last Admin Trade Name Freq PRN Reason Stop Dose Admin Sodium Chloride 1,000 mls @ 500 mls/hr 05/16/21 11:30 05/16/21 11:50 Normal Saline IV 500 mls/hr ASDIRECTED LAUREN Administration Sodium Chloride 10 ml 05/16/21 11:30 05/16/21 12:24 Sodium Chloride 0.9% 10 Ml Syringe FLUSH 10 ml ASDIRECTED PRN Administration Keep Vein Open Discontinued Medications Generic Name Dose Route Start Last Admin Trade Name Cecilq PRN Reason Stop Dose Admin Droperidol 0.625 mg 05/16/21 11:30 05/16/21 11:50 Droperidol 5 Mg/2 Ml Sdv IVPUSH 05/16/21 11:31 0.625 mg ONETIME ONE Administration Lorazepam 1 mg 05/16/21 12:16 05/16/21 12:24 Lorazepam 2 Mg/Ml Sdv IVPUSH 05/16/21 12:17 1 mg ONETIME ONE Administration - Re-Assessments/Exams Free Text/Narrative Re-Assessment/Exam: 05/16/21 11:00 Christin demanded heated bear huggar blanket and directing nursing staff regarding her medical care needs. First nurse turn off he bear hugger to allow for hearing patient and become verbal abusive to nurse whom left the room stating "Please let us know when you are ready to talk in a more respectful manner". 05/16/21 13:23 Reassessment completed. Patient and report symptoms are improved at this time and comfortable going home after IV fluid completed. Ativan and Haldol for home use recommended. Departure - Departure Time of Disposition: 13:24 Disposition: Home, Self-Care 01 Clinical Impression: Cyclic vomiting syndrome, Marijuana use, Cannabinoid hyperemesis syndrome - Discharge Information Prescriptions: LORazepam [Ativan] 1 mg PO Q6H 2 Days #5 tab haloperidoL [Haldol] 2 mg PO Q12HR 2 Days #4 tab Instructions: Nausea and Vomiting, Adult, What You Need to Know About Marijuana Use, Cannabis Use Disorder Referrals: PCP,None [Primary Care Provider] - Forms: ED Department Discharge Additional Instructions: 1. Haldol 2mg every am and pm x 2 days for hyperemesis and cyclic vomiting, may be due to marijuana use. 2. Ativan 1mg every 6-8hr prn hyperemesis and cyclic vomiting, may be due to marijuana use. 3. See PCP for recheck if not improving in 24-48 hours. 4. Unfortunately, your brain may now response differential to Marijuana use which can not be changed unless use is discontinued. Sepsis Event Note (ED) - Evaluation Sepsis Screening Result: No Definite Risk - Focused Exam Vital Signs: Vital Signs Temp Pulse Resp BP Pulse Ox 05/16/21 11:37 35.9 C L 56 L 24 H 157/111 H 97 05/16/21 11:12 35.9 C L 56 L 24 H 157/111 H 97 - My Orders Last 24 Hours: My Active Orders 05/16/21 11:29 Peripheral IV Insertion Adult [OM.PC] Urgent 05/16/21 11:30 Peripheral IV Care [RC] . DIRECTED Sodium Chloride 0.9% [Normal Saline] 1,000 ml IV ASDIRECTED Sodium Chloride 0.9% [Saline Flush] 10 ml FLUSH ASDIRECTED PRN - Assessment/Plan Last 24 Hours: My Active Orders 05/16/21 11:29 Peripheral IV Insertion Adult [OM.PC] Urgent 05/16/21 11:30 Peripheral IV Care [RC] . DIRECTED Sodium Chloride 0.9% [Normal Saline] 1,000 ml IV ASDIRECTED Sodium Chloride 0.9% [Saline Flush] 10 ml FLUSH ASDIRECTED PRN
[2021-05-16] MEDS ORDERED: LORazepam 2 MG/ML SDV IVPUSH ONE (12:16)
[2021-05-16 13:45] VITALS: BP 144/96; PULSE 52
== END 2021-05-16 13:47 | disposition home or self-care (01) ==
LOC: JP.ED 10:39
DX: R11.15 Cyclical vomiting syndrome unrelated to migraine (principal); T40.7X5A Adverse effect of cannabis (derivatives), initial encounter; F12.90 Cannabis use, unspecified, uncomplicated; Z72.0 Tobacco use; Z88.5 Allergy status to narcotic agent; Z91.048 Other nonmedicinal substance allergy status
CPT/HCPCS: 96374; 96375; 99283; J1790; J2060; J7030

== ENCOUNTER 2021-05-18 09:10 | Emergency (ER) | payer MEDICAID ==
--- NOTE | 2021-05-18 09:14 | EDM.PDOC ---
ED HPI GENERAL MEDICAL PROBLEM - General Chief Complaint: Gastrointestinal Problem Stated Complaint: VOMITTING Time Seen by Provider: 05/18/21 10:41 Source of Information: Reports: Patient, Old Records, RN History Limitations: Reports: Other (Very hard to get hx from, does not want to talk to nursing or provider) - History of Present Illness INITIAL COMMENTS - FREE TEXT/NARRATIVE: 40 yo female with a PHx of cannabinoid hyperemesis syndrome was here 2 d ago for this. Returns again today with nausea, vomiting, abdominal pain and a feeling of being cold. No hematemesis or diarrhea. Onset: Gradual Onset Date: 05/17/21 Duration: Hour(s):, Waxing/Waning Location: Reports: Abdomen Quality: Reports: Ache Severity: Mild Improves with: Reports: Medication Worsens with: Reports: Other (unsure) Context: Reports: Other (See HPI) Associated Symptoms: Reports: Loss of Appetite, Nausea/Vomiting. 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: Other (see below) (zofran) Abdomen Pain Score (Numeric/FACES): 8 - Related Data Allergies Allergy/AdvReac Type Severity Reaction Status Date / Time codeine Allergy Intermediate Hives Verified 05/18/21 09:50 adhesive tape Allergy Rash Verified 05/18/21 09:50 Home Meds: Home Meds Prochlorperazine [Compazine] 25 mg RC QID PRN #7 supp.rect 04/25/20 [Rx] Prochlorperazine [Compazine] 25 mg RC Q6H PRN #6 supp.rect 04/17/21 [Rx] LORazepam [Ativan] 1 mg PO Q6H 2 Days #5 tab 05/16/21 [Rx] haloperidoL [Haldol] 2 mg PO Q12HR 2 Days #4 tab 05/16/21 [Rx] Ondansetron [Zofran ODT] 4 mg PO Q6H PRN #10 tab.dis 05/18/21 [Rx] Past Medical History HEENT History: Reports: Otitis Media Gastrointestinal History: Reports: Other (See Below) Other Gastrointestinal History: every few months gets severe nausea and vomiting episodes. 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 Musculoskeletal History: Reports: Neck Pain, Chronic Psychiatric History: Reports: ADHD, Anxiety Immunologic History: Reports: Immunosuppression Dermatologic History: Reports: Eczema, Other (See Below) Other Dermatologic History: bartholon cysts on viry area - Infectious Disease History Infectious Disease History: Reports: Chicken Pox - Past Surgical History HEENT Surgical History: Reports: Adenoidectomy, Tonsillectomy Female Surgical History: Reports: Section, Tubal Ligation Social & Family History - Caffeine Use Caffeine Use: Reports: Coffee, Soda ED ROS GENERAL - Review of Systems Review Of Systems: See Below Constitutional: Reports: No Symptoms HEENT: Reports: No Symptoms Respiratory: Reports: No Symptoms Cardiovascular: Reports: No Symptoms GI/Abdominal: Reports: Abdominal Pain, Nausea, Vomiting. Denies: Black Stool, Bloody Stool, Constipation, Diarrhea, Distension, Hematemesis, Hematochezia, Melena : Reports: No Symptoms Musculoskeletal: Reports: No Symptoms Skin: Reports: No Symptoms Neurological: Reports: No Symptoms Psychiatric: Reports: No Symptoms ED EXAM, GI/ABD - Physical Exam Exam: See Below Exam Limited By: No Limitations General Appearance: Alert, WD/WN, Mild Distress Eyes: Bilateral: Normal Appearance Ears: Normal External Exam, Normal Canal, Hearing Grossly Normal Nose: Normal Inspection, No Blood Throat/Mouth: Normal Inspection, Normal Lips, Normal Voice, No Airway Compromise Head: Atraumatic, Normocephalic Neck: Normal Inspection Respiratory/Chest: No Respiratory Distress, Lungs Clear, Normal Breath Sounds, No Accessory Muscle Use Cardiovascular: Regular Rate, Rhythm, No Edema GI/Abdominal Exam: Normal Bowel Sounds, Soft, Non-Tender, No Distention Back Exam: Normal Inspection. No: CVA Tenderness (R), CVA Tenderness (L) Extremities: Normal Inspection, Normal Range of Motion, Non-Tender Neurological: Alert, Oriented, CN II-XII Intact, Normal Cognition, No Motor/Sensory Deficits Psychiatric: Normal Affect, Normal Mood Skin Exam: Warm, Dry, Intact, Normal Color, No Rash Course - Vital Signs Last Recorded V/S: Last Vital Signs Temp 35.4 C L 05/18/21 09:50 Pulse 52 L 05/18/21 09:50 Resp 18 05/18/21 09:50 BP 169/126 H 05/18/21 09:50 Pulse Ox 99 05/18/21 09:50 - Orders/Labs/Meds Orders: Active Orders 24 hr Category Date Time Status DRUG SCREEN, URINE [URCHEM] Stat Lab 05/18/21 09:13 Ordered MAGNESIUM [CHEM] Stat Lab 05/18/21 11:15 Ordered NS + KCl 20mEq/L [Normal Saline with 20 mEq KCl] 1,000 Med 05/18/21 11:15 Active ml IV ASDIRECTED Sodium Chloride 0.9% [Normal Saline] 1,000 ml Med 05/18/21 10:15 Active IV ASDIRECTED Medication Orders Sodium Chloride (Normal Saline) 1,000 mls @ 1,000 mls/hr IV ASDIRECTED LAUREN Last Admin: 05/18/21 10:12 Dose: 1,000 mls/hr Documented by: NAOMY Potassium Chloride/Sodium Chloride (Normal Saline With 20 Meq Kcl) 1,000 mls @ 1,000 mls/hr IV ASDIRECTED LAUREN Labs: Laboratory Tests 05/18/21 Range/Units 10:18 Sodium 143 (140-148) mmol/L Potassium 3.4 L (3.6-5.2) mmol/L Chloride 105 (100-108) mmol/L Carbon Dioxide 24 (21-32) mmol/L Anion Gap 17.4 H (5.0-14.0) mmol/L BUN 21 H (7-18) mg/dL Creatinine 0.8 (0.6-1.0) mg/dL Est Cr Clr Drug Dosing 66.25 mL/min Estimated GFR (MDRD) > 60 (>60) Glucose 137 H (74-106) mg/dL Calcium 9.3 (8.5-10.1) mg/dL Meds: Medications Generic Name Dose Route Start Last Admin Trade Name Freq PRN Reason Stop Dose Admin Sodium Chloride 1,000 mls @ 1,000 mls/hr 05/18/21 10:15 05/18/21 10:12 Normal Saline IV 1,000 mls/hr ASDIRECTED LAUREN Administration Potassium Chloride/Sodium Chloride 1,000 mls @ 1,000 mls/hr 05/18/21 11:15 Normal Saline With 20 Meq Kcl IV ASDIRECTED LAUREN Discontinued Medications Generic Name Dose Route Start Last Admin Trade Name Freq PRN Reason Stop Dose Admin Diphenhydramine HCl 50 mg 05/18/21 09:33 05/18/21 10:19 Diphenhydramine 50 Mg/Ml Sdv IVPUSH 06/22/21 09:34 50 mg ONETIME ONE Administration Lactated Ringer's 1,000 mls @ 1,000 mls/hr 05/18/21 09:33 Ringers, Lactated IV 05/18/21 10:32 BOLUS ONE Lorazepam 1 mg 05/18/21 09:33 05/18/21 10:16 Lorazepam 2 Mg/Ml Sdv IVPUSH 05/18/21 09:34 1 mg ONETIME ONE Administration Prochlorperazine Edisylate 10 mg 05/18/21 09:33 05/18/21 10:20 Prochlorperazine 10 Mg/2 Ml Sdv IVPUSH 05/18/21 09:34 10 mg ONETIME ONE Administration Departure - Departure Time of Disposition: 12:25 Disposition: Home, Self-Care 01 Condition: Fair Clinical Impression: Cannabinoid hyperemesis syndrome, Mild dehydration - Discharge Information *PRESCRIPTION DRUG MONITORING PROGRAM REVIEWED*: Not Applicable *COPY OF PRESCRIPTION DRUG MONITORING REPORT IN PATIENT OCTAVIO: Not Applicable Prescriptions: Ondansetron [Zofran ODT] 4 mg PO Q6H PRN #10 tab.dis PRN Reason: Nausea Instructions: Nausea and Vomiting, Adult, [id number] Referrals: PCP,None [Primary Care Provider] - Forms: ED Department Discharge Additional Instructions: Use Zofran as needed for nausea control. See your provider for recheck this week, call for an appt. Sepsis Event Note (ED) - Focused Exam Vital Signs: Vital Signs Temp Pulse Resp BP Pulse Ox 05/18/21 09:50 35.4 C L 52 L 18 169/126 H 99 05/18/21 09:37 35.4 C L 52 L 18 169/126 H 99 - My Orders Last 24 Hours: My Active Orders 05/18/21 09:13 DRUG SCREEN, URINE [URCHEM] Stat 05/18/21 10:15 Sodium Chloride 0.9% [Normal Saline] 1,000 ml IV ASDIRECTED 05/18/21 11:15 MAGNESIUM [CHEM] Stat NS + KCl 20mEq/L [Normal Saline with 20 mEq KCl] 1,000 ml IV ASDIRECTED - Assessment/Plan Last 24 Hours: My Active Orders 05/18/21 09:13 DRUG SCREEN, URINE [URCHEM] Stat 05/18/21 10:15 Sodium Chloride 0.9% [Normal Saline] 1,000 ml IV ASDIRECTED 05/18/21 11:15 MAGNESIUM [CHEM] Stat NS + KCl 20mEq/L [Normal Saline with 20 mEq KCl] 1,000 ml IV ASDIRECTED
[2021-05-18] MEDS ORDERED: Prochlorperazine 10 MG/2 ML SDV IVPUSH ONE (09:33)
[2021-05-18] MEDS ORDERED: diphenhydrAMINE 50 MG/ML SDV IVPUSH ONE (09:33)
[2021-05-18] MEDS ORDERED: Lactated Ringers 1,000 ML IV ONE (09:33)
[2021-05-18] MEDS ORDERED: LORazepam 2 MG/ML SDV IVPUSH ONE (09:33)
[2021-05-18 09:38] VITALS: BP 169/126; PULSE 52
[2021-05-18] MEDS ORDERED: Sodium Chloride 0.9% 1,000 ML IV SCH (10:15)
[2021-05-18] MEDS ORDERED: NS + KCl 20mEq/L 1,000 ML IV SCH (11:15)
[2021-05-18] MEDS ORDERED: Magnesium Oxide 400 MG Tab PO ONE (12:04)
== END 2021-05-18 13:40 | disposition home or self-care (01) ==
LOC: JP.ED 09:10
DX: R11.2 Nausea with vomiting, unspecified (principal); F12.90 Cannabis use, unspecified, uncomplicated; E86.0 Dehydration; Z88.5 Allergy status to narcotic agent; Z91.048 Other nonmedicinal substance allergy status; Z79.899 Other long term (current) drug therapy
CPT/HCPCS: 36415; 80048; 80305; 83735; 96365; 96375; 99284; A9270; J0780; J1200; J2060; J3480; J7030

== ENCOUNTER 2021-11-25 12:14 | Emergency (ER) | payer MEDICAID ==
[2021-11-25] MEDS ORDERED: diphenhydrAMINE 50 MG/ML SDV IVPUSH ONE (12:24)
[2021-11-25] MEDS ORDERED: Lactated Ringers 1,000 ML IV ONE ×2 (12:24→13:18)
[2021-11-25] MEDS ORDERED: Prochlorperazine 10 MG/2 ML SDV IVPUSH ONE (12:25)
--- NOTE | 2021-11-25 13:01 | EDM.PDOC ---
ED HPI GENERAL MEDICAL PROBLEM - General Chief Complaint: Gastrointestinal Problem Stated Complaint: VOMITING Time Seen by Provider: 11/25/21 12:50 Source of Information: Reports: Patient, Old Records History Limitations: Reports: No Limitations - History of Present Illness INITIAL COMMENTS - FREE TEXT/NARRATIVE: 41 yo female with a pHx of cannabinoid hyperemesis syndrome presents with nausea and vomiting that began this AM. No blood in her emesis. No diarrhea or fever. No abdominal distention. Is here with her son. Onset: Today Onset Date: 11/25/21 Duration: Hour(s):, Constant Location: Reports: Abdomen Quality: Reports: Ache Severity: Moderate Improves with: Reports: None Worsens with: Reports: Other (vomiting) Context: Reports: Other (See HPI) Associated Symptoms: Reports: Nausea/Vomiting. Denies: Fever/Chills Treatments RESPIRATORY SERVICES MANAGER: Reports: Other (see below) (none) stomach and head Pain Score (Numeric/FACES): 7 - Related Data Allergies Allergy/AdvReac Type Severity Reaction Status Date / Time codeine Allergy Intermediate Hives Verified 11/25/21 12:41 adhesive tape Allergy Rash Verified 11/25/21 12:41 Home Meds: Home Meds Prochlorperazine [Compazine] 25 mg RC QID PRN #7 supp.rect 04/25/20 [Rx] Prochlorperazine [Compazine] 25 mg RC Q6H PRN #6 supp.rect 04/17/21 [Rx] LORazepam [Ativan] 1 mg PO Q6H 2 Days #5 tab 05/16/21 [Rx] Ondansetron [Zofran ODT] 4 mg PO Q6H PRN #10 tab.dis 05/18/21 [Rx] LORazepam [Ativan] 0.5 mg PO Q8H PRN #4 tab 11/25/21 [Rx] Levothyroxine [Synthroid] 100 mcg PO ACBREAKFAST 11/25/21 [History] Promethazine [Phenadoz] 25 mg RECTAL Q6H PRN #7 supp 11/25/21 [Rx] Past Medical History HEENT History: Reports: Otitis Media Gastrointestinal History: Reports: Other (See Below) Other Gastrointestinal History: every few months gets severe nausea and vomiting episodes. 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[employer]ER History: Reports: Other [employer]ER History: Bartholin cysts Musculoskeletal History: Reports: Neck Pain, Chronic Psychiatric History: Reports: ADHD, Anxiety Immunologic History: Reports: Immunosuppression Dermatologic History: Reports: Eczema, Other (See Below) Other Dermatologic History: bartholon cysts on viry area - Infectious Disease History Infectious Disease History: Reports: Chicken Pox, Novel Coronavirus - Past Surgical History HEENT Surgical History: Reports: Adenoidectomy, Tonsillectomy Female Surgical History: Reports: Section, Tubal Ligation Social & Family History - Tobacco Use Tobacco Use Status *Q: Current Every Day Tobacco User Years of Tobacco use: 27 Packs/Tins Daily: 0.5 - Caffeine Use Caffeine Use: Reports: Coffee, Energy Drinks, Soda, Tea - Recreational Drug Use Recreational Drug Use: Yes Recreational Drug Type: Reports: Marijuana/Hashish Recreational Drug Use Frequency: Daily ED ROS GENERAL - Review of Systems Review Of Systems: See Below Constitutional: Reports: No Symptoms HEENT: Reports: No Symptoms Respiratory: Reports: No Symptoms Cardiovascular: Reports: No Symptoms GI/Abdominal: Reports: Abdominal Pain (mild to moderate, generalized), Nausea, Vomiting. Denies: Constipation, Diarrhea, Distension : Reports: No Symptoms Musculoskeletal: Reports: No Symptoms Skin: Reports: No Symptoms Neurological: Reports: No Symptoms Psychiatric: Reports: No Symptoms ED EXAM, GI/ABD - Physical Exam Exam: See Below Exam Limited By: No Limitations General Appearance: Alert, WD/WN, Mild Distress Eyes: Bilateral: Normal Appearance Ears: Normal External Exam, Normal Canal, Hearing Grossly Normal Nose: Normal Inspection, No Blood Throat/Mouth: Normal Inspection, Normal Lips, Normal Oropharynx, Normal Voice, No Airway Compromise Head: Atraumatic, Normocephalic Neck: Normal Inspection Respiratory/Chest: No Respiratory Distress, Lungs Clear, Normal Breath Sounds, No Accessory Muscle Use Cardiovascular: Regular Rate, Rhythm, No Edema GI/Abdominal Exam: Soft, No Distention, Tender (mild, diffuse). No: Non-Tender, Distended, Guarding, Rigid, Rebound Back Exam: Normal Inspection Extremities: Normal Inspection Neurological: Alert, Oriented, CN II-XII Intact, Normal Cognition, No Motor/Sensory Deficits Psychiatric: Normal Affect, Normal Mood Skin Exam: Warm, Dry, Intact, Normal Color, No Rash Course - Vital Signs Last Recorded V/S: Last Vital Signs Temp 36.4 C 11/25/21 12:47 Pulse 51 L 11/25/21 13:49 Resp 20 11/25/21 13:49 BP 169/99 H 11/25/21 13:49 Pulse Ox 99 11/25/21 13:49 - Orders/Labs/Meds Orders: Active Orders 24 hr Category Date Time Status Lactated Ringers [Ringers, Lactated] 1,000 ml Med 11/25/21 13:18 Active IV BOLUS Medication Orders Lactated Ringer's (Ringers, Lactated) 1,000 mls @ 1,000 mls/hr IV BOLUS ONE Stop: 11/25/21 14:17 Last Admin: 11/25/21 13:24 Dose: 1,000 mls/hr Documented by: EVELYN Labs: Laboratory Tests 11/25/21 Range/Units 12:38 Sodium 140 (140-148) mmol/L Potassium 4.0 (3.6-5.2) mmol/L Chloride 104 (100-108) mmol/L Carbon Dioxide 22 (21-32) mmol/L Anion Gap 14.5 H (5.0-14.0) mmol/L BUN 30 H (7-18) mg/dL Creatinine 1.0 (0.6-1.0) mg/dL Est Cr Clr Drug Dosing 53.55 mL/min Estimated GFR (MDRD) > 60 (>60) Glucose 196 H (74-106) mg/dL Calcium 10.6 H (8.5-10.1) mg/dL Magnesium 1.8 (1.8-2.4) mg/dL Meds: Medications Generic Name Dose Route Start Last Admin Trade Name Freq PRN Reason Stop Dose Admin Lactated Ringer's 1,000 mls @ 1,000 mls/hr 11/25/21 13:18 11/25/21 13:24 Ringers, Lactated IV 11/25/21 14:17 1,000 mls/hr BOLUS ONE Administration Discontinued Medications Generic Name Dose Route Start Last Admin Trade Name Freq PRN Reason Stop Dose Admin Diphenhydramine HCl 50 mg 11/25/21 12:24 11/25/21 12:36 Diphenhydramine 50 Mg/Ml Sdv IVPUSH 11/25/21 12:25 50 mg ONETIME ONE Administration Lactated Ringer's 1,000 mls @ 1,000 mls/hr 11/25/21 12:24 11/25/21 12:37 Ringers, Lactated IV 11/25/21 13:23 1,000 mls/hr BOLUS ONE Administration Lorazepam 0.5 mg 11/25/21 13:40 11/25/21 13:46 Lorazepam 0.5 Mg Tab PO 11/25/21 13:41 0.5 mg ONETIME ONE Administration Prochlorperazine Edisylate 10 mg 11/25/21 12:25 11/25/21 12:36 Prochlorperazine 10 Mg/2 Ml Sdv IVPUSH 11/25/21 12:26 10 mg ONETIME ONE Administration - Re-Assessments/Exams Free Text/Narrative Re-Assessment/Exam: 11/25/21 14:04 With 400 ml of IV fluids remaining in her 2nd IV bag she decided she wanted to go home. Departure - Departure Time of Disposition: 14:10 Disposition: Home, Self-Care 01 Condition: Fair Clinical Impression: Cannabinoid hyperemesis syndrome, Mild dehydration, Elevated blood sugar - Discharge Information *PRESCRIPTION DRUG MONITORING PROGRAM REVIEWED*: Not Applicable *COPY OF PRESCRIPTION DRUG MONITORING REPORT IN PATIENT OCTAVIO: Not Applicable Prescriptions: LORazepam [Ativan] 0.5 mg PO Q8H PRN #4 tab PRN Reason: Anxiety Promethazine [Phenadoz] 25 mg RECTAL Q6H PRN #7 supp PRN Reason: Nausea Instructions: Nausea and Vomiting, Adult Referrals: Duc Case Sr, MD [Primary Care Provider] - Forms: ED Department Discharge Additional Instructions: If you are unable to keep down your oral meds, then try the rectal promethazine(Rx sent to [facility] as well as more lorazepam). F/U with your provider regarding today's elevated blood sugar. Return as needed. Sip on clear liquids today to try to maintain hydration. Discuss your anxiety with your provider as well. Sepsis Event Note (ED) - Evaluation Sepsis Screening Result: No Definite Risk - Focused Exam Vital Signs: Vital Signs Temp Pulse Resp BP Pulse Ox 11/25/21 13:49 51 L 20 169/99 H 99 11/25/21 12:48 67 26 H 141/120 H 98 11/25/21 12:47 36.4 C 50 L 184/113 H 100 11/25/21 12:38 50 L 100 11/25/21 12:34 36.4 C 41 L 184/113 H - My Orders Last 24 Hours: My Active Orders 11/25/21 13:18 Lactated Ringers [Ringers, Lactated] 1,000 ml IV BOLUS - Assessment/Plan Last 24 Hours: My Active Orders 11/25/21 13:18 Lactated Ringers [Ringers, Lactated] 1,000 ml IV BOLUS
[2021-11-25] MEDS ORDERED: LORazepam 0.5 MG Tab PO ONE (13:40)
[2021-11-25 13:50] VITALS: BP 169/99; PULSE 51
== END 2021-11-25 14:20 | disposition home or self-care (01) ==
LOC: JP.ED 12:14
DX: R11.2 Nausea with vomiting, unspecified (principal); T40.715A Adverse effect of cannabis, initial encounter; R73.9 Hyperglycemia, unspecified; E86.0 Dehydration; Z91.048 Other nonmedicinal substance allergy status; Z79.899 Other long term (current) drug therapy; Z72.0 Tobacco use
CPT/HCPCS: 36415; 80048; 83735; 96374; 96375; 99284-25; A9270-GY; J0780; J1200; J7120

== ENCOUNTER 2022-02-09 12:56 | Emergency (ER) | payer MEDICAID ==
[2022-02-09 13:16] VITALS: BP 182/89; PULSE 53
[2022-02-09] MEDS ORDERED: LORazepam 2 MG/ML SDV IVPUSH ONE (13:22)
[2022-02-09] MEDS ORDERED: Sodium Chloride 0.9% 1,000 ML IV SCH (13:30)
== END 2022-02-09 15:04 | disposition home or self-care (01) ==
LOC: JP.ED 12:56
DX: R11.15 Cyclical vomiting syndrome unrelated to migraine (principal); Z72.0 Tobacco use; Z79.899 Other long term (current) drug therapy; Z88.8 Allergy status to other drugs, medicaments and biological substances
CPT/HCPCS: 96374; 96375; 99282; 99283-25; J1790; J2060; J7030

== ENCOUNTER 2022-02-11 09:00 | Emergency (ER) | payer MEDICAID ==
[2022-02-11 09:24] VITALS: BP 134/74; PULSE 64
[2022-02-11] MEDS ORDERED: LORazepam 2 MG/ML SDV IVPUSH ONE ×2 (09:38→11:11)
[2022-02-11] MEDS ORDERED: Ondansetron 4 MG/2 ML SDV IVPUSH ONE (09:39)
[2022-02-11] MEDS ORDERED: Sodium Chloride 0.9% 1,000 ML IV SCH (09:45)
[2022-02-11] MEDS ORDERED: LORazepam 0.5 MG Tab PO ONE (10:48)
== END 2022-02-11 11:49 | disposition home or self-care (01) ==
LOC: JP.ED 09:00
DX: R11.2 Nausea with vomiting, unspecified (principal); Z88.5 Allergy status to narcotic agent; Z91.048 Other nonmedicinal substance allergy status; Z79.899 Other long term (current) drug therapy; Z72.0 Tobacco use
CPT/HCPCS: 36415; 80053; 96374; 96375; 96376; 99283; 99284-25; A9270-GY; J2060; J2405; J7030

== ENCOUNTER 2022-02-12 08:46 | Emergency (ER) | payer MEDICAID ==
[2022-02-12] MEDS ORDERED: HYDROmorphone 0.5 MG/0.5 ML Syringe IVPUSH ONE (09:09)
[2022-02-12] MEDS ORDERED: LORazepam 2 MG/ML SDV IVPUSH ONE (09:09)
[2022-02-12] MEDS ORDERED: Lactated Ringers 1,000 ML IV SCH ×2 (09:15→10:15)
[2022-02-12] MEDS ORDERED: methylPREDNISolone Sodium Succinate 125 MG/2 ML SDV IVPUSH ONE (10:03)
[2022-02-12 10:56] VITALS: BP 130/70; PULSE 59
== END 2022-02-12 10:56 | disposition home or self-care (01) ==
LOC: JP.ED 08:46
DX: R11.15 Cyclical vomiting syndrome unrelated to migraine (principal); Z88.5 Allergy status to narcotic agent; Z91.048 Other nonmedicinal substance allergy status; Z79.899 Other long term (current) drug therapy; Z72.0 Tobacco use
CPT/HCPCS: 80305-QW; 96374; 96375; 99283; 99284-25; J1170; J2060; J2930; J7120

== ENCOUNTER 2022-08-23 10:30 | Emergency (ER) | payer MEDICAID ==
[2022-08-23] MEDS ORDERED: Ondansetron 4 MG/2 ML SDV IVPUSH ONE (11:08)
[2022-08-23] MEDS ORDERED: SUMAtriptan 6 MG/0.5 ML SDV SUBCUT ONE (11:08)
[2022-08-23] MEDS ORDERED: Sodium Chloride 0.9% 10 ML Syringe FLUSH PRN (11:08)
[2022-08-23] MEDS ORDERED: Capsaicin 0.025% Crm 60 GM Tube TOP PRN (11:18)
[2022-08-23] MEDS: Lactated Ringers 1,000 ML IV ONE (11:24)
[2022-08-23] MEDS: LORazepam 2 MG/ML SDV IVPUSH ONE (11:45)
[2022-08-23] MEDS: Capsaicin 0.025% Crm 60 GM Tube TOP PRN (12:00)
[2022-08-23] MEDS: Ketorolac 30 MG/ML SDV IVPUSH ONE (12:17)
[2022-08-23 12:43] VITALS: BP 132/83; PULSE 66
== END 2022-08-23 13:00 | disposition home or self-care (01) ==
LOC: JP.ED 10:30
DX: R11.2 Nausea with vomiting, unspecified (principal); F12.90 Cannabis use, unspecified, uncomplicated; F17.210 Nicotine dependence, cigarettes, uncomplicated; Z88.5 Allergy status to narcotic agent; Z91.048 Other nonmedicinal substance allergy status
CPT/HCPCS: 36415; 80048; 85025; 96361; 96372; 96374; 96375; 99284; 99284-25; A9270-GY; J1790; J1885; J2060; J7120